=== PATIENT | male | born 1980 ===

== ENCOUNTER 2021-03-09 09:58 | Emergency (ER) | payer OTHER, SELFPAY ==
--- NOTE | ~2021-03-09 | XR_ITS ---
EXAMINATION: XR HAND, LEFT CLINICAL INFORMATION: Nail gun injury COMPARISON: None TECHNIQUE: PA, lateral, and oblique views of the left hand. FINDINGS: Bone alignment is normal. No fracture or dislocation is seen. Joint spaces are normal. Soft tissues are normal. XR/XR hand LT 2V IMPRESSION: Normal left hand.
[2021-03-09 10:12] VITALS: BP 133/82; PULSE 70; RESP 16; TEMP 36.4; O2SAT 98; BMI 30.5
[2021-03-09] MEDS: Diphth,Pertus(ACell),Tet Adult 0.5 ML SYRINGE IM (10:45)
--- NOTE | 2021-03-09 10:58 | ED.UPPEXIN ---
HPI - Extremity Injury (Upper) General Chief Complaint: Extremity Injury, Upper Stated Complaint: lt hand injury nail gun - work related Time Seen by Provider: 03/09/21 10:12 Source: patient Mode of arrival: ambulatory Limitations: no limitations History of Present Illness HPI narrative: 40-year-old male presenting to the ED with complaints of nail gun work related injury to left hand at the 4th digit when he was building a Pallet with the nail gun. He reports his hand was behind the wooden piece and he believes the wooden piece was rotten and the nail went directly into his 4th digit after it went through the wooden piece when attempted to build the wooden Pallet. He reports he was able to remove the digit away from the nail/piece of wood and he does not believe he has any foreign bodies. He reports that this happened prior to arrival. He is not up-to-date on his tetanus. Denies any other symptoms complaints or concerns at this time. MD complaint: injury to: left, hand and finger (Fourth digit) Onset (ago): minute(s) (Prior to arrival) Other injuries: none Place: work Severity: mild Exacerbating factors: other (Palpation) Context: other (Puncture wound with nail/nailgun) Associated symptoms: denies other symptoms Treatments prior to arrival: bandage Related Data Previous Rx's Medication Instructions Recorded levetiracetam 1,000 mg tablet 1,000 mg PO BID 30 Days #60 tab 12/09/20 lacosamide 100 mg tablet 100 mg PO BID 30 Days #60 tab 01/25/21 acetaminophen [Tylenol Extra 1,000 mg PO QID PRN #14 tab 03/09/21 Strength] ibuprofen 800 mg PO Q8H PRN #14 tab 03/09/21 Allergies Allergy/AdvReac Type Severity Reaction Status Date / Time No Known Allergies Allergy Unverified 07/15/20 18:36 [No Known Allergies*] Review of Systems Review of Systems: Constitutional : No Fever, No Chills, Cardiovascular : No Chest Pain, No SOB Respiratory : No Dyspnea Gastrointestinal : No abdominal pain Musculoskeletal : No Joint Swelling Skin : positive skin laceration, No Foreign bodies, No rash, No surrounding erythema Neuro : No Weakness, No Numbness/tingling Psych : No SI/HI/thoughts of self injury Yes all other systems are reviewed and are negative PMFSH Past Medical History Attestation statement: The following information was validated with the patient. Medical History Seizures Sleep apnea Social History Social History Smoking Status: Current every day smoker Use of substances other than those prescribed or required for medical reasons: No Advance Directives: No Advance Directives Information Provided: No Physical Exam Vital Signs: Vital Signs: Last Vital Signs Temp 97.6 F 03/09/21 10:12 Pulse 70 03/09/21 10:12 Resp 16 03/09/21 10:12 BP 133/82 03/09/21 10:12 Pulse Ox 98 03/09/21 10:12 Body Mass Index 30.5 vital signs have been reviewed as normal and appeared to be correct. Blood pressure normal. Heart rate normal. Respiration rate normal. Temperature normal. Oxygen saturation normal. Appearance: Alert. Oriented X3. No acute distress. Head: Normal external exam. Normocephalic. Atraumatic. Eyes: PERRLA. EOMI. Conjunctiva and sclera normal. Eyelids normal. ENT: Pharynx normal. Uvula midline. Moist mucous membranes. Neck: Normal inspection. Neck supple. FROM. No adenopathy. Thyroid Normal. No meningeal signs. No neck mass noted. CVS: Normal heart rate and rhythm. Pulses normal throughout. Respiratory: No respiratory distress. Painless inspiration. Back: Full range of motion noted. Skin: Skin warm and dry. Normal skin color. Normal skin turgor. No rashes/lesions/lacerations noted. Extremities: To 4th digit at the palmar aspect distal aspect patient has puncture wound noted no active bleeding/foreign body/surrounding erythema/fluctuance/induration or signs of infection noted at this time. Patient has full range of motion of the digit no laxity is noted. Otherwise all other Extremities exhibit normal range of motion and nontender. Neuro: Oriented X 3. No motor deficit. No sensory deficit. Reflexes normal. Course Course Course Narrative: 40-year-old male status post work related injury with nail gun. X-ray obtained negative for any acute processes. No sutures indicated at this time. The wound was cleaned. Patient's tetanus was updated at this time. Will DC home with instructions return if any new or worsening symptoms and to follow up with primary care provider. Patient understands agrees this plan. MDM - Extremity Injury (Upper) Medical Records Attestation: I reviewed the patient's medical records. Imaging Data X-ray left hand: Attestation: I personally reviewed and interpreted this imaging study as follows: Radiologist's impression: FINDINGS: Bone alignment is normal. No fracture or dislocation is seen. Joint spaces are normal. Soft tissues are normal. XR/XR hand LT 2V IMPRESSION: Normal left hand. Discharge Plan Discharge Clinical Impression: Puncture wound of finger of left hand, Encounter for assessment of work-related causation of injury Patient Disposition: Home, Self-Care Instructions: Puncture Wound (ED), Return to Work Instructions (ED) Prescriptions: New acetaminophen [Tylenol Extra Strength] 500 mg tablet 1,000 mg PO QID PRN (Reason: fever or pain) Qty: 14 RF: 0 ibuprofen 800 mg tablet 800 mg PO Q8H PRN (Reason: pain) Qty: 14 RF: 0 No Action levetiracetam [Keppra] 1,000 mg tablet 1,000 mg PO BID 30 Days Qty: 60 RF: 0 Vimpat 100 mg tablet 100 mg PO BID 30 Days Qty: 60 RF: 0 Referrals: [facility] [Provider Group] - 03/09/21 Stand Alone Forms: Work/School Release Print Language: Indonesian
== END 2021-03-09 11:34 | disposition home or self-care (01) ==
PROVIDERS: Emergency Provider Emergency Medicine Emergency Medical Services; PCP Internal Medicine
DX: S61.432A Puncture wound without foreign body of left hand, initial encounter (principal); M79.645 Pain in left finger(s); W45.8XXA Other foreign body or object entering through skin, initial encounter; Y93.9 Activity, unspecified; Y92.9 Unspecified place or not applicable; Y99.9 Unspecified external cause status
CPT/HCPCS: 73120; 90471; 90715; 99283; 99284

== ENCOUNTER 2022-04-18 07:24 | Emergency (ER) | payer OTHER, SELFPAY ==
--- NOTE | ~2022-04-18 | XR_ITS ---
EXAMINATION: XR HAND, RIGHT CLINICAL INFORMATION: Right hand pain after fall COMPARISON: None TECHNIQUE: PA, lateral, and oblique views of the right hand. FINDINGS: Bones, joints and soft tissues of the hand and wrist have a normal appearance. No evidence of acute fracture or subluxation. No radiopaque foreign body. XR/XR hand RT min 3V IMPRESSION: Normal right hand.
--- NOTE | ~2022-04-18 | XR_ITS ---
EXAMINATION: XR SHOULDER, LEFT CLINICAL INFORMATION: Left anterior shoulder pain after fall. COMPARISON: None TECHNIQUE: AP external rotation, Grashey, scapular Y, and axillary views of the left shoulder. FINDINGS: The bones and soft tissues are normal. No fracture. Glenohumeral and acromioclavicular alignment is anatomic with normal joint space. No abnormal soft tissue calcifications. XR/XR shoulder LT min 2V IMPRESSION: Normal left shoulder.
[2022-04-18 07:28] VITALS: BP 131/75; PULSE 90; RESP 18; TEMP 36.6; O2SAT 98; BMI 29.0
--- NOTE | 2022-04-18 08:23 | ED_ITS ---
HPI - Extremity Injury (Upper) General Chief Complaint: Wound/Laceration Stated Complaint: fall r hand inj Time Seen by Provider: 04/18/22 07:30 Source: patient Mode of arrival: ambulatory Limitations: no limitations History of Present Illness HPI narrative: R hand and L shoulder injury post fall MD complaint: injury to: right and hand Onset (ago): day(s) (1) Other injuries: none Handedness: right Place: outdoors Severity: mild Relieving factors: immobilization Exacerbating factors: movement of extremity Context: direct blow Associated symptoms: other (abrasions to R hand) Related Data Previous Rx's Medication Instructions Recorded lacosamide 100 mg tablet (Vimpat) 100 mg PO BID 30 days #60 tabs 11/14/21 levetiracetam 1,000 mg tablet 1,000 mg PO BID 30 days #60 tabs 01/09/22 (Keppra) Allergies Allergy/AdvReac Type Severity Reaction Status Date / Time phenytoin [From Dilantin] AdvReac Intermediate inadequate Verified 11/24/21 16:02 response Review of Systems Review of Systems: Constitutional : No Fever, No Chills ENT/Mouth : No Ear Pain, No Hoarseness, No sore throat Eyes: No Eye Pain, No Swelling, No Redness, No Foreign Body Cardiovascular : No Chest Pain, No SOB Respiratory : No Cough, No Dyspnea Gastrointestinal : No Nausea, No Vomiting, No Diarrhea, No abdominal Pain Genitourinary : No Dysuria, No Hematuria Musculoskeletal : positive joint pain, No Myalgias, No Joint Swelling Skin : No Skin lacerations, No rash, pos abrasions Neuro : No Weakness, No Numbness, No Loss of Consciousness, No Dizziness, No Headache PMFSH Past Medical History Attestation statement: The following information was validated with the patient. Medical History Sleep apnea Surgical History History of major surgery Family History Family History (Updated 11/24/21 @ 15:53 by NATALIA Santa) Father Alzheimer's dementia Brother Brain malignant neoplasm Mother CVA (cerebral vascular accident) Social History Social History Housing: Apartment Alcohol intake: current Alcohol intake frequency: holidays/special occasions only Alcohol type: beer Patient Tobacco Use Status: Current everyday Tobacco user Cigarettes Per Day: 5 e-Cigarette/Vaping Use: Never Used Second Hand Smoke Exposure: No Advance Directives: No Advance Directives Information Provided: No service: No Current occupational status: unemployed Physical Exam Vital Signs: Vital Signs: Last Vital Signs Temp 98 F 04/18/22 07:28 Pulse 90 04/18/22 07:28 Resp 18 04/18/22 07:28 BP 131/75 04/18/22 07:28 Pulse Ox 98 04/18/22 07:28 O2 Del Method 04/18/22 07:28 BMI result Body Mass Index 29.0 Appearance: Alert. Oriented X3. No acute distress. Eyes: Pupils equal, round and reactive to light. ENT: Pharynx normal. Neck: Normal inspection. Neck supple. CVS: Normal heart rate and rhythm. Pulses normal. Respiratory: No respiratory distress. Breath sounds normal. Abdomen: Soft and nontender. Skin: Skin warm and dry. Normal skin color. Normal skin turgor. Extremities: No lower extremity edema. L shoulder mild ttp over AC joint, R hand mild superficial abrasions over MCPs distal NV intact ttp along MCP joints but no swelling noted and can move fingers Neuro: Oriented X 3. No motor deficit. No sensory deficit. MDM - Extremity Injury (Upper) MDM Narrative Medical decision making narrative: 41 yo male with no sig PMH here with mechanical fall yesterday striking R hand on ground (adamantly denies fight bite) and L shoulder pain - xrays ordered, tet anus was 1 year ago, R hand abrasions were cleansed. Dispo per results and findings. He is NV intact Discharge Plan Discharge Clinical Impression: Abrasion, Hand sprain, Shoulder sprain Patient Disposition: Home, Self-Care Instructions: Sprain (ED), Abrasion (ED) Additional Instructions: return to ED for any worsening symptoms or concerns keep wounds clean and dry / covered, apply bacitracin twice a day xray of hand and shoulder no broken bones Prescriptions: No Action Vimpat 100 mg tablet 100 mg PO BID 30 Days Qty: 60 0RF levetiracetam [Keppra] 1,000 mg tablet 1,000 mg PO BID 30 Days Qty: 60 3RF Stand Alone Forms: Work/School Release
== END 2022-04-18 10:02 | disposition home or self-care (01) ==
PROVIDERS: Emergency Provider Emergency Medicine; PCP Internal Medicine
DX: S61.411A Laceration without foreign body of right hand, initial encounter (principal); S41.012A Laceration without foreign body of left shoulder, initial encounter; S41.011A Laceration without foreign body of right shoulder, initial encounter; S40.212A Abrasion of left shoulder, initial encounter; F17.210 Nicotine dependence, cigarettes, uncomplicated; W01.0XXA Fall on same level from slipping, tripping and stumbling without subsequent striking against object, initial encounter; Y93.9 Activity, unspecified; Y92.9 Unspecified place or not applicable; Y99.9 Unspecified external cause status; Z71.6 Tobacco abuse counseling; Z79.899 Other long term (current) drug therapy
CPT/HCPCS: 73030; 73130; 96372; 99283

== ENCOUNTER 2022-05-15 12:54 | Emergency (ER) | payer OTHER, SELFPAY ==
[2022-05-15 12:58] VITALS: BP 130/85; PULSE 63; RESP 18; TEMP 36.7; O2SAT 99; BMI 28.1
== END 2022-05-15 16:25 | disposition left against medical advice (07) ==
LOC: HO.ED 15:39
PROVIDERS: Emergency Provider Emergency Medicine; PCP Internal Medicine
DX: R56.9 Unspecified convulsions (principal)
CPT/HCPCS: 99281

== ENCOUNTER 2022-05-17 03:58 | Emergency (ER) | payer OTHER, SELFPAY ==
[2022-05-17 04:12] VITALS: BP 140/70; PULSE 102
[2022-05-17 04:16] VITALS: BP 115/70; PULSE 88; RESP 16; TEMP 36.7; O2SAT 95
[2022-05-17 04:23] VITALS: BP 126/89; PULSE 89; PULSE 91; RESP 16; TEMP 36.6; TEMP 37.2; O2SAT 98; O2SAT 99; BMI 25.1
--- NOTE | 2022-05-17 04:47 | ED.SEIZURE ---
HPI - Seizure General Chief Complaint: Seizure Stated Complaint: seizure Time Seen by Provider: 05/17/22 04:39 Source: patient and EMS Mode of arrival: EMS Limitations: no limitations History of Present Illness HPI Narrative: Patient comes to the emergency room after patient had seizure-like activity. This was witnessed by patient's cousin who called 911. Patient does have history of seizures, usually takes Keppra 500 mg b.i.d. and Vimpat 100 mg b.i.d.. Patient's Toprol he has been only taking Keppra, ran out of Vimpat over 1 month ago. Patient states that he bit his tongue. Patient denies any headache, chest pain or shortness of breath, no abdominal pain, no URI or UTI symptoms. Related Data Previous Rx's Medication Instructions Recorded lacosamide 100 mg tablet (Vimpat) 100 mg PO BID 30 days #60 tabs 11/14/21 levetiracetam 1,000 mg tablet 1,000 mg PO BID 30 days #60 tabs 05/03/22 (Keppra) lacosamide 100 mg tablet (Vimpat) 100 mg PO BID #60 tabs 05/17/22 Allergies Allergy/AdvReac Type Severity Reaction Status Date / Time phenytoin [From Dilantin] AdvReac Intermediate inadequate Verified 11/24/21 16:02 response Review of Systems Review of Systems: Constitutional : No Weight loss, No Fever, No Chills, No Night Sweats, No Fatigue, No Malaise ENT/Mouth : No Hearing loss, No Ear Pain, No Nasal Congestion, No Sinus Pain, No Hoarseness, No sore throat, No Rhinorrhea, No Swallowing Difficulty, tongue pain/bite Eyes: No Eye Pain, No Swelling, No Redness, No Foreign Body, No Discharge, No Vision Changes Cardiovascular : No Chest Pain, No SOB, No Dyspnea on Exertion, No Orthopnea, No Edema, No Palpitations Respiratory : No Cough, No Sputum, No Wheezing, No Smoke Exposure, No Dyspnea Gastrointestinal : No Nausea, No Vomiting, No Diarrhea, No Constipation, No abdominal Pain, No Hematochezia, No Melena Genitourinary : no irregular bleeding, No Dysuria, No Urinary Frequency, No Hematuria, No Urinary Incontinence, No Urgency, No Flank Pain, No Urinary Flow Changes, No Hesitancy Musculoskeletal : No joint pain, No Myalgias, No Joint Swelling Skin : No Skin Lesions, No rash Neuro : No Weakness, No Numbness, No Paresthesias, No Loss of Consciousness, No Dizziness, No Headache, complaining of a tonic clonic seizure Psych : No Anxiety/Panic, No Depression, No SI/HI/AH/VH, No Social Issues, Heme/Lymph: No Bruising, No Bleeding,No Lymphadenopathy Endocrine : No Polyuria, No Polydipsia, No Temperature Intolerance [facility] Past Medical History Medical History Moderate major depression, single episode Obesity (BMI 30-39.9) RADHA (obstructive sleep apnea) Overweight (BMI 25.0-29.9) Seizures Sleep apnea Surgical History History of major surgery Family History Family History (Updated 11/24/21 @ 15:53 by NATALIA Santa) Father Alzheimer's dementia Brother Brain malignant neoplasm Mother CVA (cerebral vascular accident) Social History Social History Housing: Apartment Alcohol intake: current Alcohol intake frequency: holidays/special occasions only Alcohol type: beer Patient Tobacco Use Status: Current everyday Tobacco user Cigarettes Per Day: 5 e-Cigarette/Vaping Use: Never Used Second Hand Smoke Exposure: No Advance Directives: No service: No Current occupational status: unemployed Physical Exam Vital Signs: Vital Signs: Last Vital Signs Temp 97.8 F 05/17/22 04:23 Pulse 89 05/17/22 04:23 Resp 16 05/17/22 04:23 BP 126/89 05/17/22 04:23 Pulse Ox 98 05/17/22 04:23 O2 Del Method 05/17/22 04:23 BMI result Body Mass Index 25.1 Const: Other: Appearance: Alert. Oriented X3. No acute distress. Eyes: Pupils equal, round and reactive to light. ENT: Pharynx normal. I do not see any bite chapa or bleeding in the tongue Neck: Normal inspection. Neck supple. No lymph nodes noted. No crepitus CVS: Normal heart rate and rhythm. Pulses normal. Normal S1 and S2 Respiratory: No respiratory distress. Breath sounds normal. No Wheezing. No rales Abdomen: Soft and nontender. No rigidity. No distention. Skin: Skin warm and dry. Normal skin color. Normal skin turgor. Extremities: No lower extremity edema. No Lacerations. No Rash Neuro: Oriented X 3. No motor deficit. No sensory deficit. Moving all extremities. No slurred speech. CN 2 through 12 grossly intact Psych: calm, cooperative, normal affect Course Course Course Narrative: Patient states that he does not remember if he took 1 or 2 doses of Keppra yesterday. Patient is being given IV Keppra at this time. All of patient's labs are pending. I discussed the patient with Dr. Chavez. I discussed the patient's situation that he cannot afford Vimpat. I discussed with Dr. Chavez if there is another medication that can replace be impaired. At this time, Dr. Chavez declined to make any further recommendations, other than have the patient follow-up with his own neurologist MDM - Seizure Lab Data Result diagrams: 05/17/22 04:42 05/17/22 04:42 Labs: Lab Results 05/17/22 05/17/22 05/17/22 Range/Units 04:42 04:42 04:42 WBC 15.7 H (4.8-10.8) X10*3/uL RBC 4.61 (4.60-5.80) X10*6/uL Hgb 14.0 (14.0-18.0) g/dl Hct 41.0 L (42.0-52.0) % MCV 88.9 (80.0-98.0) fL MCH 30.4 (27.0-33.0) pg MCHC 34.1 (31.0-36.0) g/dl RDW 12.9 (11.0-16.0) % Plt Count 337 (160-400) X10*3/uL MPV 10.3 (9.4-12.4) fL Immature Gran % (Auto) 0.4 (0.0-0.4) % Neut % (Auto) 78.0 H (45-73) % Lymph % (Auto) 14.8 L (20-40) % [place] % (Auto) 5.4 (2-11) % Eos % (Auto) 1.1 (0-4) % Baso % (Auto) 0.3 (0-2) % Lymph # (Auto) 2.3 (1.2-4.9) X10*3/uL [place] # (Auto) 0.9 (0.1-1.2) X10*3/uL Eos # (Auto) 0.2 (0.0-0.4) X10*3/uL Baso # (Auto) 0.0 (0.0-0.2) X10*3/uL Abs Immat Gran (auto) 0.07 H (0.00-0.03) X10*3/uL Absolute Neuts (auto) 12.2 H (2.0-8.3) x10*3/uL Absolute Nucleated RBC 0.000 (0.0-0.012) X10*3/uL Nucleated RBC % (auto) 0.0 (0.0-0.2) /100WBC Sodium 135 (135-145) mmol/L Potassium 3.9 (3.3-5.1) mmol/L Chloride 104 (96-108) mmol/L Carbon Dioxide 24 (22-29) mmol/L Anion Gap 11 L (12-20) BUN 13 (9-16) mg/dL Creatinine 0.91 (0.5-1.4) mg/dL Estim Creat Clear Calc 109.1 Estimated GFR > 60 Random Glucose 126 H (60-115) mg/dL Lactic Acid 1.7 (0.5-2.0) mmol/L Calcium 8.8 (8.4-10.2) mg/dL Total Bilirubin 0.4 (0.0-1.0) mg/dL AST 27 (5-37) U/L ALT 23 (0-40) U/L Alkaline Phosphatase 78 (39-117) U/L Total Protein 6.3 L (6.5-8.0) g/dL Albumin 4.0 (3.5-5.0) g/dL Ethyl Alcohol < 10 mg/dL Discharge Plan Discharge Clinical Impression: Seizures Patient Disposition: Home, Self-Care Instructions: Generalized Tonic Clonic Seizures (ED) Additional Instructions: Please follow-up with your primary care physician tomorrow. If you have any worsening or new symptoms, please return to the emergency room or call 911 Prescriptions: New lacosamide [Vimpat] 100 mg tablet 100 mg PO BID Qty: 60 0RF No Action Vimpat 100 mg tablet 100 mg PO BID 30 Days Qty: 60 0RF levetiracetam [Keppra] 1,000 mg tablet 1,000 mg PO BID 30 Days Qty: 60 3RF
[2022-05-17 04:48] LABS: MANUAL DIFF FLAG NO
[2022-05-17 04:49] LABS: Basophils Percent Auto 0.3 % (0-2); Eosinophils Absolute Auto 0.2 X10*3/uL (0.0-0.4); Eosinophils Percent Auto 1.1 % (0-4); Imm Gran Abs Auto 0.07 X10*3/uL (0.00-0.03); Imm Gran Pct Auto 0.4 % (0.0-0.4); Lymphocytes Absolute Auto 2.3 X10*3/uL (1.2-4.9); Lymphocytes Percent Auto 14.8 % (20-40); Mean Corpuscular HGB Conc 34.1 g/dl (31.0-36.0); Mean Corpuscular Hemoglobin 30.4 pg (27.0-33.0); Mean Corpuscular Volume 88.9 fL (80.0-98.0); Mean Platelet Volume 10.3 fL (9.4-12.4); Monocytes Absolute Auto 0.9 X10*3/uL (0.1-1.2); Monocytes Percent Auto 5.4 % (2-11); Neutrophils Absolute Auto 12.2 x10*3/uL (2.0-8.3); Platelet Count 337 X10*3/uL (160-400); Red Blood Count 4.61 X10*6/uL (4.60-5.80); Red Cell Distribution Width 12.9 % (11.0-16.0); White Blood Count 15.7 X10*3/uL (4.8-10.8)
[2022-05-17] MEDS: levETIRAcetam in NaCl (iso-os) 1,000 MG/100 ML PIGGYBACK 400 MG IV (04:54)
[2022-05-17 05:02] LABS: Lactic Acid 1.7 mmol/L (0.5-2.0)
[2022-05-17 05:13] LABS: Alanine Aminotransferase 23 U/L (0-40); Alkaline Phosphatase 78 U/L (39-117); Anion Gap 11 (12-20); Aspartate Amino Transferase 27 U/L (5-37); Bilirubin Total 0.4 mg/dL (0.0-1.0); Blood Urea Nitrogen 13 mg/dL (9-16); Calcium 8.8 mg/dL (8.4-10.2); Carbon Dioxide 24 mmol/L (22-29); Chloride 104 mmol/L (96-108); Creatinine Clr Calc Pharmacy 109.1; Estimated Glomerular Filt Rate > 60; Ethanol < 10 mg/dL; Glucose Random 126 mg/dL (60-115); Potassium 3.9 mmol/L (3.3-5.1); Sodium 135 mmol/L (135-145); Total Protein 6.3 g/dL (6.5-8.0)
[2022-05-23 01:07] LABS: Levetiracetam Keppra <2.0 mcg/mL (6.0-46.0)
== END 2022-05-17 08:10 | disposition home or self-care (01) ==
PROVIDERS: Emergency Provider Emergency Medicine; PCP Internal Medicine
DX: R56.9 Unspecified convulsions (principal); F17.200 Nicotine dependence, unspecified, uncomplicated; Z71.6 Tobacco abuse counseling; Z79.899 Other long term (current) drug therapy
CPT/HCPCS: 36415; 80053; 80177; 82077; 83605; 85025; 96374; 99284; J1953

== ENCOUNTER 2022-05-21 22:13 | Emergency (ER) | payer OTHER, SELFPAY ==
[2022-05-21 22:21] VITALS: BP 123/76; PULSE 85; RESP 16; TEMP 36.9; O2SAT 97; BMI 28.1
[2022-05-21 23:44] VITALS: BP 126/77; PULSE 83; RESP 16; TEMP 37.1; O2SAT 98
--- NOTE | 2022-05-21 23:47 | ED_ITS ---
HPI - Seizure General Chief Complaint: Seizure Stated Complaint: ongoing seizures, dr Order Time Seen by Provider: 05/21/22 23:47 Source: patient and family Mode of arrival: ambulatory Limitations: no limitations History of Present Illness HPI Narrative: Patient history of seizures disorder on Vimpat and Keppra been taking Vimpat 100 mg twice daily and Keppra 1000 mg twice daily patient had labs of few days and Keppra but got the medication filled was seen here 2 days ago and was given IV Keppra today patient had 2 seizures with prolonged postictal phase at this time patient alert oriented x3 no active seizure activities no injuries Related Data Previous Rx's Medication Instructions Recorded lacosamide 100 mg tablet (Vimpat) 100 mg PO BID 30 days #60 tabs 11/14/21 levetiracetam 1,000 mg tablet 1,000 mg PO BID 30 days #60 tabs 05/03/22 (Keppra) lacosamide 100 mg tablet (Vimpat) 100 mg PO BID #60 tabs 05/17/22 diazepam 5 mg tablet (Valium) 5 mg PO BID PRN seizure activity 05/22/22 #10 tabs Allergies Allergy/AdvReac Type Severity Reaction Status Date / Time phenytoin [From Dilantin] AdvReac Intermediate inadequate Verified 05/21/22 22:19 response Review of Systems Review of Systems: Yes all other systems are reviewed and are negative PMF Past Medical History Medical History Moderate major depression, single episode Obesity (BMI 30-39.9) RADHA (obstructive sleep apnea) Overweight (BMI 25.0-29.9) Seizures Sleep apnea Surgical History History of major surgery Family History Family History Father Alzheimer's dementia Brother Brain malignant neoplasm Mother CVA (cerebral vascular accident) Social History Social History Housing: Apartment Alcohol intake: current Alcohol intake frequency: holidays/special occasions only Alcohol type: beer Patient Tobacco Use Status: Current everyday Tobacco user Cigarettes Per Day: 5 e-Cigarette/Vaping Use: Never Used Second Hand Smoke Exposure: No Advance Directives: No Advance Directives Information Provided: Yes service: No Current occupational status: unemployed Physical Exam Vital Signs: Vital Signs: Last Vital Signs Temp 98.7 F 05/21/22 23:44 Pulse 83 05/21/22 23:44 Resp 16 05/21/22 23:44 BP 126/77 05/21/22 23:44 Pulse Ox 98 05/21/22 23:44 O2 Del Method 05/21/22 23:44 BMI result Body Mass Index 28.1 Appearance: Alert. Oriented X3. No acute distress. Eyes: PERRLA, No Nystagmus ENT: Pharynx normal. Oral Mucosa moist Neck: Normal inspection. Neck supple. CVS: Normal heart rate and rhythm. Pulses normal. Respiratory: No respiratory distress. Equal air entry bilateral, no whe ezing/rales/rhonchi Abdomen: Soft and nontender. Bowel sounds are present, no mass palpable, no CVA tenderness Skin: Skin warm and dry. Normal skin color. Normal skin turgor. Extremities: No lower extremity edema. No calf tenderness Neuro: Oriented X 3. No motor deficit. No sensory deficit.No cerebellar signs , cranial nerves II-XII intact MDM - Seizure MDM Narrative Medical decision making narrative: Patient denies seizure disorder had an few weeks of not taking the medications restarted 2 days ago still having seizure patient advised to continue same supposed to see a neurologist tomorrow. Meanwhile patient was given Valium 5 mg twice daily as needed for seizure Differential Diagnosis Differential diagnosis: Likely generalized seizure Discharge Plan Discharge Clinical Impression: Seizures Patient Disposition: Home, Self-Care Instructions: Recurrent Seizures in Adults (ED) Additional Instructions: Start taking Valium 5 mg twice daily as needed for seizure see your neurologist tomorrow for further evaluation and management as scheduled Prescriptions: New diazepam [Valium] 5 mg tablet 5 mg PO BID PRN (Reason: seizure activity) Qty: 10 0RF No Action Vimpat 100 mg tablet 100 mg PO BID 30 Days Qty: 60 0RF levetiracetam [Keppra] 1,000 mg tablet 1,000 mg PO BID 30 Days Qty: 60 3RF lacosamide [Vimpat] 100 mg tablet 100 mg PO BID Qty: 60 0RF Stand Alone Forms: Work/School Release Interventions: ED Discharge Assessment Last Done: 05/22/22 00:20 Discharge Date/Time: 05/22/22 00:20
[2022-05-22] MEDS: diazePAM 2 MG TABLET 5 MG PO (00:04)
== END 2022-05-22 00:20 | disposition home or self-care (01) ==
PROVIDERS: Emergency Provider Internal Medicine; PCP Internal Medicine
DX: R56.9 Unspecified convulsions (principal); Z79.899 Other long term (current) drug therapy; F17.210 Nicotine dependence, cigarettes, uncomplicated; Z71.6 Tobacco abuse counseling
CPT/HCPCS: 99283; 99284

== ENCOUNTER 2022-06-04 22:04 | Emergency (ER) | payer OTHER, SELFPAY ==
--- NOTE | 2022-06-04 22:05 | ECG_ITS ---
Test Reason : CHEST PAIN Blood Pressure : / mmHG Vent. Rate : 068 BPM Atrial Rate : 068 BPM P-R Int : 146 ms QRS Dur : 080 ms QT Int : 388 ms P-R-T Axes : 020 047 023 degrees QTc Int : 412 ms Normal sinus rhythm Normal ECG No previous ECGs available Referred By: Generic ED Physician Electronically Signed By:ABIGAIL JONES
[2022-06-04 22:07] VITALS: BP 115/57; PULSE 71; RESP 18; TEMP 37.2; O2SAT 98; BMI 28.1
[2022-06-04 22:33] LABS: MANUAL DIFF FLAG NO
[2022-06-04 22:40] LABS: Basophils Percent Auto 0.3 % (0-2); Eosinophils Absolute Auto 0.1 X10*3/uL (0.0-0.4); Hematocrit 41.5 % (42.0-52.0); Hemoglobin 14.1 g/dl (14.0-18.0); Imm Gran Abs Auto 0.04 X10*3/uL (0.00-0.03); Imm Gran Pct Auto 0.3 % (0.0-0.4); Lymphocytes Absolute Auto 2.3 X10*3/uL (1.2-4.9); Lymphocytes Percent Auto 17.9 % (20-40); Mean Corpuscular Hemoglobin 30.5 pg (27.0-33.0); Mean Corpuscular Volume 89.6 fL (80.0-98.0); Mean Platelet Volume 11.1 fL (9.4-12.4); Monocytes Absolute Auto 0.7 X10*3/uL (0.1-1.2); Monocytes Percent Auto 5.5 % (2-11); Neutrophils Absolute Auto 9.8 x10*3/uL (2.0-8.3); Platelet Count 299 X10*3/uL (160-400); Red Blood Count 4.63 X10*6/uL (4.60-5.80); Red Cell Distribution Width 13.2 % (11.0-16.0); White Blood Count 13.1 X10*3/uL (4.8-10.8)
[2022-06-04 22:59] LABS: Alanine Aminotransferase 14 U/L (0-40); Albumin Level 4.4 g/dL (3.5-5.0); Alkaline Phosphatase 100 U/L (39-117); Anion Gap 14 (12-20); Aspartate Amino Transferase 16 U/L (5-37); Bilirubin Total 0.4 mg/dL (0.0-1.0); Blood Urea Nitrogen 11 mg/dL (9-16); Calcium 9.3 mg/dL (8.4-10.2); Carbon Dioxide 28 mmol/L (22-29); Chloride 102 mmol/L (96-108); Creatinine Clr Calc Pharmacy 109.3; Estimated Glomerular Filt Rate > 60; Glucose Random 102 mg/dL (60-115); Sodium 140 mmol/L (135-145); Total Protein 6.9 g/dL (6.5-8.0)
[2022-06-04 23:03] LABS: Troponin-I High Sensitivity < 3.5 ng/L (<3.5-35.0)
== END 2022-06-04 23:45 | disposition left against medical advice (07) ==
PROVIDERS: Emergency Provider Emergency Medicine; PCP Internal Medicine
DX: R07.9 Chest pain, unspecified (principal); R56.9 Unspecified convulsions
CPT/HCPCS: 36415; 80053; 84484; 85025; 93005; 99283

== ENCOUNTER → 2022-10-26 15:17 | Outpatient (BNVA) | payer OTHER, SELFPAY | PROVIDERS: PCP Internal Medicine; Visit Provider Internal Medicine | DX: R56.9 Unspecified convulsions (principal); G47.33 Obstructive sleep apnea (adult) (pediatric); R40.0 Somnolence; R06.83 Snoring; E66.01 Morbid (severe) obesity due to excess calories; F17.210 Nicotine dependence, cigarettes, uncomplicated; Z68.28 Body mass index [BMI] 28.0-28.9, adult | CPT/HCPCS: 99202 ==

== ENCOUNTER 2022-11-02 17:15 | Outpatient (REF) | payer OTHER, SELFPAY | END 2022-11-02 17:16 | disposition home or self-care (01) | LOC: HO.HOSX 17:15 | PROVIDERS: Visit Provider Physician Assistant | DX: Z13.89 Encounter for screening for other disorder (principal) ==

== ENCOUNTER 2022-11-03 04:38 | Emergency (ER) | payer OTHER, SELFPAY ==
--- NOTE | ~2022-11-03 | CT_ITS ---
EXAMINATION: CT HEAD WITHOUT CONTRAST CLINICAL INFORMATION: Status post seizure, fall COMPARISON: MRI brain 04/24/2014 TECHNIQUE: Contiguous axial imaging was performed from the skull base to vertex without intravenous administration of contrast. This CT examination was performed using dose optimization techniques as appropriate, variously including the following: *Automated exposure control *Adjustment of mA and/or kV according to patient size (this includes techniques or standardized protocols for targeted exams where dose is matched to indication/reason for exam; i.e. extremities or head) *Use of iterative reconstruction technique DLP: 743 mGy-cm FINDINGS: There is no acute intra-axial, extra-axial bleed, masses or midline shift. There is no acute infarction in evolution. The blake to white matter difference is maintained. The lateral ventricles are symmetrical in size size and configuration without enlargement. There is no edema. The blake to white matter difference is maintained normal. Bone windows reveal no calvarial abnormality. Bilateral paranasal sinuses and mastoid air cells are well-aerated. CT/CT head/brain wo IV con IMPRESSION: No acute intracranial process seen.
[2022-11-03 04:39] VITALS: BP 138/97; PULSE 94; RESP 18; TEMP 36.9; O2SAT 98; BMI 28.0
--- NOTE | 2022-11-03 04:53 | ECG_ITS ---
Test Reason : SEIZURE Blood Pressure : / mmHG Vent. Rate : 081 BPM Atrial Rate : 081 BPM P-R Int : 170 ms QRS Dur : 078 ms QT Int : 350 ms P-R-T Axes : 058 037 029 degrees QTc Int : 406 ms Normal sinus rhythm Normal ECG When compared with ECG of 04-JUN-2022 22:25, No significant change was found Referred By: Generic ED Physician Electronically Signed By:ABIGAIL JONES
[2022-11-03 04:54] VITALS: BP 125/83; PULSE 84; RESP 22; TEMP 36.6; O2SAT 99
--- NOTE | 2022-11-03 05:03 | ED_ITS ---
HPI - Seizure General Chief Complaint: Seizure Stated Complaint: seizures, loss of memory, confusion, hit head Time Seen by Provider: 11/03/22 05:03 Source: patient Mode of arrival: ambulatory Limitations: no limitations History of Present Illness HPI Narrative: Patient has history of seizure disorder on levetiracetam and lacosamide, missed his medication for last 2 days came for 2 episodes of seizures is 1st seizure at 01:00 lasted for 3 -4 minutes with postictal combative behavior bit his tongue went to sleep and again had a 2nd seizure at 03:00 fell off the chair onto the ground bit his tongue again last seizure was in June 19. When patient arrived patient was sleepy complaining of headaches Seizure History: Yes Place: Home Related Data Previous Rx's Medication Instructions Recorded nicotine 21 mg/24 hr daily 1 patch transdermal DAILY 28 days 07/25/22 transdermal patch #28 ea levetiracetam 1,000 mg tablet 1,000 mg PO BID 30 days #60 tabs 08/26/22 (Keppra) lacosamide 100 mg tablet (Vimpat) 100 mg PO BID #60 tabs 10/16/22 Allergies Allergy/AdvReac Type Severity Reaction Status Date / Time phenytoin [From Dilantin] AdvReac Intermediate inadequate Verified 10/26/22 15:49 response Review of Systems Review of Systems: Yes all other systems are reviewed and are negative PMFSH Past Medical History Medical History Hospital discharge follow-up Moderate major depression, single episode Obesity (BMI 30-39.9) RADHA (obstructive sleep apnea) Overweight (BMI 25.0-29.9) Seizures Sleep apnea Smoker Somnolence, daytime Surgical History History of major surgery Family History Family History Father Alzheimer's dementia Brother Brain malignant neoplasm Mother CVA (cerebral vascular accident) Social History Social History Housing: Apartment Alcohol intake: current Alcohol intake frequency: does not drink Alcohol type: beer Patient Tobacco Use Status: Current everyday Tobacco user Cigarettes Per Day: 10 Smoked in Last 30 Days: Yes e-Cigarette/Vaping Use: Never Used Second Hand Smoke Exposure: No Use of substances other than those prescribed or required for medical reasons: No Advance Directives: No Advance Directives Information Provided: Yes service: No Current occupational status: unemployed Cognitive needs: No Hearing needs: No Vision needs: No Physical Exam Vital Signs: Vital Signs: Last Vital Signs Temp 98.2 F 11/03/22 06:00 Pulse 82 11/03/22 06:00 Resp 20 11/03/22 06:00 BP 126/86 11/03/22 06:00 Pulse Ox 96 11/03/22 06:00 O2 Del Method 11/03/22 06:00 BMI result Body Mass Index 28.0 Appearance: Alert. Oriented X3. No acute distress. Eyes: PERRLA, No Nystagmus ENT: Pharynx normal. Oral Mucosa moist tongue bite+ Neck: Normal inspection. Neck supple. CVS: Normal heart rate and rhythm. Pulses normal. Respiratory: No respiratory distress. Equal air entry bilateral, no wheezing/rales/rhonchi Abdomen: Soft and nontender. Bowel sounds are present, no mass palpable, no CVA tenderness Skin: Skin warm and dry. Normal skin color. Normal skin turgor. Extremities: No lower extremity edema. No calf tenderness Neuro: Oriented X 3. No motor deficit. No sensory deficit.No cerebellar signs , cranial nerves II-XII intact Medications Administered Discontinued Medications Generic Name Dose Route Start Last Admin Trade Name Freq PRN Reason Stop Dose Admin Lacosamide 100 mg 11/03/22 05:06 11/03/22 05:38 Lacosamide 100 Mg Tablet PO 11/03/22 05:07 100 mg ONCE ONE Administration Levetiracetam 1,000 mg 11/03/22 05:07 11/03/22 05:38 Levetiracetam 500 Mg/5 Ml Vial IV 11/03/22 05:08 1,000 mg ONCE ONE Administration Medical Decision Making Medical Decision Making [facility] Narrative: Patient with breakthrough seizure missed his epileptic medication CT scan of the head was negative patient was given IV Keppra and Vimpat advised to follow with PCP and not to miss his dose patient will be getting his medication from the pharmacy today and Lab Data [facility] Lab Attestation statement: I reviewed the patient's lab results. 11/03/22 05:20 11/03/22 05:20 Labs: Lab Results 11/03/22 11/03/22 11/03/22 Range/Units 05:05 05:20 05:20 WBC 16.8 H (4.8-10.8) X10*3/uL RBC 5.49 (4.60-5.80) X10*6/uL Hgb 16.6 (14.0-18.0) g/dl Hct 47.9 (42.0-52.0) % MCV 87.2 (80.0-98.0) fL MCH 30.2 (27.0-33.0) pg MCHC 34.7 (31.0-36.0) g/dl RDW 12.7 (11.0-16.0) % Plt Count 382 D (160-400) X10*3/uL MPV 9.9 (9.4-12.4) fL Immature Gran % (Auto) 0.4 (0.0-0.4) % Neut % (Auto) 82.2 H (45-73) % Lymph % (Auto) 11.7 L (20-40) % [place] % (Auto) 4.7 (2-11) % Eos % (Auto) 0.5 (0-4) % Baso % (Auto) 0.5 (0-2) % Lymph # (Auto) 2.0 (1.2-4.9) X10*3/uL [place] # (Auto) 0.8 (0.1-1.2) X10*3/uL Eos # (Auto) 0.1 (0.0-0.4) X10*3/uL Baso # (Auto) 0.1 (0.0-0.2) X10*3/uL Abs Immat Gran (auto) 0.07 H (0.00-0.03) X10*3/uL Absolute Neuts (auto) 13.8 H (2.0-8.3) x10*3/uL Absolute Nucleated RBC 0.020 H (0.0-0.012) X10*3/uL Nucleated RBC % (auto) 0.1 (0.0-0.2) /100WBC Sodium 138 (135-145) mmol/L Potassium 4.8 (3.3-5.1) mmol/L Chloride 104 (96-108) mmol/L Carbon Dioxide 23 (22-29) mmol/L Anion Gap 16 (12-20) BUN 11 (9-16) mg/dL Creatinine 0.96 (0.5-1.4) mg/dL Estim Creat Clear Calc 101.2 Estimated GFR > 60 POC Glucose 100 (60-115) mg/dL Random Glucose 93 (60-115) mg/dL Calcium 10.1 D (8.4-10.2) mg/dL Discharge Plan Discharge Clinical Impression: Seizures Patient Disposition: Home, Self-Care Instructions: Recurrent Seizures in Adults (ED) Additional Instructions: Do not miss your medications take them on regular basis Follow with PCP/neurologist Prescriptions: No Action nicotine 21 mg/24 hr patch 24 hour 1 patch transdermal DAILY 28 Days Qty: 28 0RF levetiracetam [Keppra] 1,000 mg tablet 1,000 mg PO BID 30 Days Qty: 60 3RF lacosamide [Vimpat] 100 mg tablet 100 mg PO BID Qty: 60 0RF Stand Alone Forms: Work/School Release
[2022-11-03 05:08] LABS: Glucose, Whole Blood 100 mg/dL (60-115)
[2022-11-03 05:25] LABS: Basophils Absolute Auto 0.1 X10*3/uL (0.0-0.2); Basophils Percent Auto 0.5 % (0-2); Eosinophils Absolute Auto 0.1 X10*3/uL (0.0-0.4); Eosinophils Percent Auto 0.5 % (0-4); Hematocrit 47.9 % (42.0-52.0); Hemoglobin 16.6 g/dl (14.0-18.0); Imm Gran Abs Auto 0.07 X10*3/uL (0.00-0.03); Imm Gran Pct Auto 0.4 % (0.0-0.4); Lymphocytes Percent Auto 11.7 % (20-40); MANUAL DIFF FLAG NO; Mean Corpuscular HGB Conc 34.7 g/dl (31.0-36.0); Mean Corpuscular Hemoglobin 30.2 pg (27.0-33.0); Mean Corpuscular Volume 87.2 fL (80.0-98.0); Mean Platelet Volume 9.9 fL (9.4-12.4); Monocytes Absolute Auto 0.8 X10*3/uL (0.1-1.2); Monocytes Percent Auto 4.7 % (2-11); NRBC Pct Auto 0.1 /100WBC (0.0-0.2); Neutrophils Absolute Auto 13.8 x10*3/uL (2.0-8.3); Neutrophils Percent Auto 82.2 % (45-73); Platelet Count 382 X10*3/uL (160-400); Red Blood Count 5.49 X10*6/uL (4.60-5.80); Red Cell Distribution Width 12.7 % (11.0-16.0); White Blood Count 16.8 X10*3/uL (4.8-10.8)
[2022-11-03] MEDS: Lacosamide 100 MG TABLET PO (05:38)
[2022-11-03] MEDS: levETIRAcetam 500 MG/5 ML VIAL 1000 MG IV (05:38)
[2022-11-03 05:47] LABS: Anion Gap 16 (12-20); Blood Urea Nitrogen 11 mg/dL (9-16); Calcium 10.1 mg/dL (8.4-10.2); Carbon Dioxide 23 mmol/L (22-29); Chloride 104 mmol/L (96-108); Creatinine Clr Calc Pharmacy 101.2; Estimated Glomerular Filt Rate > 60; Glucose Random 93 mg/dL (60-115); Potassium 4.8 mmol/L (3.3-5.1); Sodium 138 mmol/L (135-145)
[2022-11-03 06:00] VITALS: BP 126/86; PULSE 82; RESP 20; TEMP 36.8; O2SAT 96
[2022-11-03] MEDS: Ketorolac Tromethamine 30 MG/ML VIAL IVPUSH (07:06)
--- NOTE | 2022-11-03 07:07 | PC.NURSE ---
Pt medicated as ordered. IV removed. Pt tolerated well. Discharge instructions provided to pt. Pt verbalizes understanding.
== END 2022-11-03 07:12 | disposition home or self-care (01) ==
PROVIDERS: Emergency Provider Internal Medicine; PCP Internal Medicine
DX: R56.9 Unspecified convulsions (principal); F17.210 Nicotine dependence, cigarettes, uncomplicated; Z71.6 Tobacco abuse counseling; Z79.899 Other long term (current) drug therapy
CPT/HCPCS: 36415; 70450; 80048; 82947; 85025; 93005; 96374; 96375; 99284; 99285; J1885; J1953

== ENCOUNTER → 2022-11-23 09:42 | Outpatient (REF) | payer OTHER, SELFPAY | LOC: HO.SL 09:42 | PROVIDERS: PCP Internal Medicine; Visit Provider Internal Medicine | DX: G47.33 Obstructive sleep apnea (adult) (pediatric) (principal) | CPT/HCPCS: 95806 ==

== ENCOUNTER → 2023-02-08 10:35 | Outpatient (BNVA) | payer OTHER, SELFPAY | PROVIDERS: PCP Internal Medicine; Visit Provider Internal Medicine | DX: G47.33 Obstructive sleep apnea (adult) (pediatric) (principal); R40.0 Somnolence; F17.210 Nicotine dependence, cigarettes, uncomplicated | CPT/HCPCS: 99212 ==

== ENCOUNTER 2023-03-09 07:25 | Outpatient (REF) | payer OTHER, SELFPAY ==
--- NOTE | ~2023-03-09 | XR_ITS ---
EXAMINATION: XR KNEE, RIGHT XR KNEE AP STANDING CLINICAL INFORMATION: Pain. COMPARISON: Right femur radiographs dated 03/24/2008 TECHNIQUE: Lateral and axial views of the right knee were obtained. AP bilateral standing view of the knees was obtained. FINDINGS: Bones and soft tissues are normal. No fracture or joint effusion. Alignment is anatomic. No varus or valgus configuration is seen bilaterally. Joint spaces are well maintained. No abnormal soft tissue calcification. A surgical clip is seen within the proximal right calf medially. XR/XR knee RT 2V IMPRESSION: Normal right knee radiographs and AP view of the bilateral knees.
--- NOTE | ~2023-03-09 | XR_ITS ---
EXAMINATION: XR KNEE, RIGHT XR KNEE AP STANDING CLINICAL INFORMATION: Pain. COMPARISON: Right femur radiographs dated 03/24/2008 TECHNIQUE: Lateral and axial views of the right knee were obtained. AP bilateral standing view of the knees was obtained. FINDINGS: Bones and soft tissues are normal. No fracture or joint effusion. Alignment is anatomic. No varus or valgus configuration is seen bilaterally. Joint spaces are well maintained. No abnormal soft tissue calcification. A surgical clip is seen within the proximal right calf medially. XR/XR knee standing BI IMPRESSION: Normal right knee radiographs and AP view of the bilateral knees.
== END 2023-03-09 07:26 | disposition home or self-care (01) ==
LOC: HO.HOSX 07:25
PROVIDERS: Visit Provider Physician Assistant
DX: M22.41 Chondromalacia patellae, right knee (principal); M25.561 Pain in right knee; M25.562 Pain in left knee; R20.0 Anesthesia of skin; R20.2 Paresthesia of skin
CPT/HCPCS: 73560; 73565; 99202

== ENCOUNTER → 2023-04-19 10:43 | Outpatient (BNVA) | payer OTHER, SELFPAY | PROVIDERS: PCP Internal Medicine; Visit Provider Internal Medicine | DX: G47.33 Obstructive sleep apnea (adult) (pediatric) (principal); F17.210 Nicotine dependence, cigarettes, uncomplicated | CPT/HCPCS: 99212 ==

== ENCOUNTER 2023-08-08 10:38 | Outpatient (AMB) | payer OTHER, SELFPAY ==
[2023-08-08 10:45] VITALS: BP 110/70; PULSE 62; O2SAT 99; BMI 29.0
--- NOTE | 2023-08-08 10:45 | MHC.OFFVIS ---
Intake Vital Signs 08/08/23 10:45 Height 5 ft 7 in Weight 185 lb BMI 29.0 BP 110/70 Blood Pressure Location Lt brachial Position Sitting Pulse 62 Pulse Source Pulse Oximeter Pulse Oximetry (%) 99 Oxygen Delivery Method Room Air Intake Visit Reasons: natalio Intake Note: pt is here for follow up and is using his NATALIO, most nights using his machine. Sales Center Associate Required: No Allergies phenytoin [From Dilantin] Adverse Reaction (Intermediate, Verified 08/08/23 11:08) inadequate response Medication List - Last Reconciled 08/08/23 by Cameron Aguiar MD lacosamide (Vimpat) 100 mg PO BID levetiracetam (Keppra) 1,000 mg PO BID 30 days Do you need a note to return to daycare/school/sports/work: No HPI natalio HPI Details THIS 43 YEARS OLD GENTLEMAN, A CASE OF OBSTRUCTIVE SLEEP APNEA MAINLY DUE TO RETROGANTHIA OF THE LOWER JAW, IS HAPPY AND EXCITED BECAUSE HE IS USING CPAP EVERY NIGHT AND SLEEPS WELL. ONLY ONCE OR TWICE A MONTH HE MAY MISS PUTTING ON THE MASK. HE WAKES UP REFRESHED, AND FEELS GOOD. HE HAS HAD NO SEIZURE AT ALL SINCE HIS LAST VISIT. HE HAS NO COMPLAINT RELATED TO THE MASK OR CPAP MACHINE. [facility]LY [facility] Medical History Smoker Somnolence, daytime Hospital discharge follow-up Overweight (BMI 25.0-29.9) NATALIO (obstructive sleep apnea) Moderate major depression, single episode Obesity (BMI 30-39.9) Sleep apnea Seizures Surgical History History of major surgery Family History Father Alzheimer's dementia Brother Brain malignant neoplasm Mother CVA (cerebral vascular accident) Social History Housing: Apartment Alcohol intake: current Alcohol intake frequency: does not drink Alcohol type: beer Patient Tobacco Use Status: Current everyday Tobacco user Tobacco use type: Cigarette Cigarettes Per Day: 4 e-Cigarette/Vaping Use: Never Used Second Hand Smoke Exposure: No service: No Current occupational status: unemployed Cognitive needs: No Hearing needs: No Vision needs: No Review of Systems Const All systems reviewed & are unremarkable except as noted in HPI and below Eyes Reports no additional complaints ENT Reports no additional complaints Card Denies chest pain, Denies irregular heart rhythm and Denies leg edema Resp Reports no additional complaints GI Reports no additional complaints Reports no additional complaints Musc Reports no additional complaints Skin/Breast Reports system reviewed and no additional complaints, except as documented Neuro Reports other (Seizure disorder controlled) Psych Reports no additional complaints and Reports depression (Past history of major depression, not any more) Endo Reports no additional complaints Physical Exam Vital Signs: Last Vital Signs Pulse 62 08/08/23 10:45 BP 110/70 08/08/23 10:45 Pulse Ox 99 08/08/23 10:45 Oxygen Delivery Method Room Air 08/08/23 10:45 BMI result Body Mass Index 29.0 Const Other: Only slightly overweight, healthy looking General: comfortable, no acute distress, alert and awake Orientation/consciousness: patient oriented x3 HEENT Head: Yes normal to inspection General nose exam: No nasal polyps present and No nasal discharge present Face and sinus: Yes sinuses nontender Mouth: oropharynx abnormals (His tongue is placed back the oropharynx is narrow, Mallampati class 4.) Teeth and gingiva: other (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.) Throat: Yes posterior oropharynx normal and Yes other (RETROGANTHIA OF THE LOWER JAW) Eyes General: appearance normal, both eyes and all related structures Neck Neck: Yes normal visual inspection, Yes no lymphadenopathy, Yes trachea midline and Yes no JVD Thyroid: Thyroid normal Chest Chest palpation & inspection: normal inspection of the chest, normal palpation of entire chest wall and no tenderness Resp Effort & Inspection: normal respiratory effort and no cough Auscultation: clear to auscultation bilaterally, no crackles and no wheezes Cardio Palpation: normal PMI Rate: regular rate Rhythm: regular rhythm Heart sounds: no gallops and no murmurs Peripheral pulses: Peripheral pulses 2+ throughout GI Palpation (GI): Soft to palpation, nontender, No hepatosplenomegaly present and no masses Auscultation: normal bowel sounds Back/Spine/Pelvis Thoracic/Lumbar Spine: thoracic and lumbar spine normal to inspection Skin General skin exam: no rashes or lesions noted Neuro General: patient oriented x3 and no focal motor deficits Cranial nerves: Yes CN's II-XII intact bilaterally Extrem General: Yes normal to inspection, Yes no clubbing, cyanosis or edema and Yes no calf tenderness Psych Appearance: grossly normal and well kempt Speech and movement: Normal speech and movement present Results Reviewed Results Reviewed: COMPLIANCE REPORT FOR THE LAST 30 NIGHTS REVIEWED. HE HAS USED 29/30 NIGHTS., 97% AVERAGE USE PER NIGHT 5 HOURS 15 MINUTES. PRESSURE USED MAINLY 9-13 CM. THERE IS A MINIMAL AIR LEAK. RESIDUAL AHI 3.8 Assessment & Plan Assessment & Plan (1) NATALIO (obstructive sleep apnea): Comment: THIS GENTLEMAN DOES HAVE OBSTRUCTIVE SLEEP APNEA WHICH IS PRIMARILY DUE TO RETROGANTHIA OF THE LOWER JAW, IT IS MUCH IMPROVED WITH THE USE OF CPAP. HE IS USING WITH FULL COMPLIANCE AND SLEEPING MUCH BETTER. ADVISED TO CONTINUE USING IT REGULARLY, HE IS VERY HAPPY WITH THE USE OF CPAP, AND FEELS REASSURED. Code(s): G47.33 - Obstructive sleep apnea (adult) (pediatric) (2) Somnolence, daytime: Comment: Excessive daytime sleepiness, secondary to untreated NATALIO, and in sufficient sleep. ESS= 15 much improved. He remains alert. And energetic during the day Code(s): R40.0 - Somnolence (3) Smoker: Comment: Smokes but has cut down to 4 cigarettes a a day . AGAIN counseled To quit smoking completely . Code(s): F17.200 - Nicotine dependence, unspecified, uncomplicated Coding Level of Care Code Est Pt Level 3 (78747) Diagnoses NATALIO (obstructive sleep apnea) G47.33 Somnolence, daytime R40.0 Smoker F17.200
== END 2023-08-08 11:15 | disposition home or self-care (01) ==
PROVIDERS: PCP Internal Medicine; Visit Provider Internal Medicine
DX: G47.33 Obstructive sleep apnea (adult) (pediatric) (principal); R40.0 Somnolence; F17.200 Nicotine dependence, unspecified, uncomplicated
CPT/HCPCS: 99213

== ENCOUNTER → 2023-08-08 10:38 | Outpatient (BNVA) | payer OTHER, SELFPAY | PROVIDERS: PCP Internal Medicine; Visit Provider Internal Medicine | DX: G47.33 Obstructive sleep apnea (adult) (pediatric) (principal); R40.0 Somnolence; F17.210 Nicotine dependence, cigarettes, uncomplicated | CPT/HCPCS: 99212 ==

== ENCOUNTER 2023-10-04 13:24 | Emergency (ER) | payer OTHER, SELFPAY | END 2023-10-04 18:45 | disposition left against medical advice (07) | PROVIDERS: Emergency Provider Emergency Medicine; PCP Internal Medicine | DX: R56.9 Unspecified convulsions (principal); Z53.21 Procedure and treatment not carried out due to patient leaving prior to being seen by health care provider ==

== ENCOUNTER 2023-10-09 08:22 | Outpatient (AMB) | payer OTHER, SELFPAY ==
--- NOTE | 2023-10-09 08:26 | A.OFFPC_ITS ---
Vital Signs 10/09/23 08:29 Height 5 ft 7 in Weight 186 lb BMI 29.1 BP 120/82 Blood Pressure Location Lt brachial Position Sitting Intake Visit Reasons: PE Intake Note: Patient here for a physical exam, flu/rsv/covid test request due to patient not feeling well. Emergency Medicine Physician Assistant Required: No Accompanied by: cousin Allergies phenytoin [From Dilantin] Adverse Reaction (Intermediate, Verified 10/09/23 08:33) inadequate response Medication List - Last Reconciled 10/09/23 by Sylvia Becerril MD lacosamide (Vimpat) 100 mg PO BID levetiracetam (Keppra) 1,000 mg PO BID 30 days Tobacco use date assessed: 01/25/23 Dental Screening Dental Screen Date: 10/09/23 Did you have a dental visit in the last 12 months?: No Did you have a dental problem in the last 6 months where you did not have access to dental care?: No Was dental information given to patient?: Patient has dentist HPI HPI Comments History of Present Illness Details This is a 43-year-old male with seizures that comes accompanied by cousin Annika which is his market director for his physical exam. He had a seizure last week despite being compliant with medications. Complains of nasal congestion, shortness of breath and chest congestion that started about 3 days ago. Tested negative for COVID-19. Denies any sick contacts. Seizures are follow by Neurology at [facility]. Also has moderate major depression and declines any treatment. [facility]LY [facility] Medical History Smoker Somnolence, daytime Hospital discharge follow-up Overweight (BMI 25.0-29.9) RADHA (obstructive sleep apnea) Moderate major depression, single episode Obesity (BMI 30-39.9) Sleep apnea Seizures Surgical History History of major surgery Family History (Updated 10/09/23 @ 08:41 by Sylvia Becerril MD) Father Alzheimer's dementia Brother Brain malignant neoplasm Mother CVA (cerebral vascular accident) Brain aneurysm Social History (Updated 10/09/23 @ 08:40 by Sylvia Becerril MD) Housing: Apartment Alcohol intake: current Alcohol intake frequency: does not drink Alcohol type: beer Patient Tobacco Use Status: Current everyday Tobacco user Tobacco use type: Cigarette Cigarettes Per Day: 4 e-Cigarette/Vaping Use: Never Used Second Hand Smoke Exposure: No service: No Current occupational status: unemployed Cognitive needs: No Hearing needs: No Vision needs: No Questionnaire Thrive Questionnaire Date Thrive assessed: 01/25/23 TRACEY-7 AMB Questionnaire TRACEY-7 Date TRACEY - 7 assessed: 05/23/22 Source: Developed by Drs. Gregg Felix, Nela Rodriguez, Eliezer Nelson and colleagues, with an educational yevgeniy from [employer]. Review of Systems Const All systems reviewed & are unremarkable except as noted in HPI and below Eyes Reports no additional complaints, Denies change in vision and Denies other visual disturbances ENT Reports nasal congestion Card Denies chest pain at rest, Denies chest pain with activity, Denies edema, Denies irregular heart rhythm, Denies claudication, Reports dyspnea, Reports dyspnea on exertion, Denies orthopnea, Denies paroxysmal nocturnal dyspnea and Denies slow heart rate Resp Reports cough, Reports excessive phlegm production, Reports dyspnea and Reports dyspnea on exertion GI Denies abdominal pain, Denies change in bowel habits, Denies excessive flatus, Denies nausea and Denies vomiting Denies urinary hesitancy, Denies urinary incontinence and Denies urinary urgency Musc Denies abnormal gait, Denies atrophy, Denies deformity and Denies limited range of motion Skin/Breast Denies bleeding lesions, Denies changing lesions and Denies rash Neuro Denies abnormal gait and Denies lack of coordination Physical exam (Primary Care) Vital Signs: Last Vital Signs BP 120/82 10/09/23 08:29 BMI result Body Mass Index 29.1 Tobacco/Smoking Status: Tobacco use Status Tobacco use date assessed 01/25/23 10/09/23 08:29 Patient Tobacco Use Status Current everyday Tobacco 10/09/23 08:29 Tobacco use type Cigarette 10/09/23 08:29 e-Cigarette/Vaping Use Never Used 10/09/23 08:29 Thrive Assessment: Date of Thrive Assessment Date Thrive assessed 01/25/23 10/09/23 08:29 Const Orientation/consciousness: patient oriented x3 HENMT Head: Yes normal to inspection, Yes normocephalic and Yes atraumatic Ears: external ears normal Eyes General: appearance normal, both eyes and all related structures Eyelids: Yes eyelids normal Conjunctivae: conjunctivae normal Neck Neck: Yes normal visual inspection and Yes supple Resp Effort & Inspection: normal respiratory effort Auscultation: clear to auscultation bilaterally Cardio Jugular venous distension: no JVD Rate: regular rate Rhythm: regular rhythm Heart sounds: S1 normal heart sound present and S2 normal heart sound present GI Inspection: Yes normal to inspection Palpation (GI): Soft to palpation and nontender Auscultation: normal bowel sounds Skin General skin exam: no rashes or lesions noted Neuro General: patient oriented x3 and no focal motor deficits Extrem General: Yes full ROM Psych Appearance: grossly normal Office Procedures Flu Questionnaire Does the patient have a severe egg allergy?: No Does the patient have a fever or illness today?: Yes Immunizations flu vacc [id number] 6mos up(PF) 60 mcg(15 mcgx4)/0.5 mL IM syringe Performing Provider: Sylvia Becerril MD [facility] Documented (not given) by: NATALIA Santa on 10/09/23 08:33 Reason Not Given: Patient Refused Assessment and Plan Assessment & Plan (1) Physical exam: Code(s): Z00.00 - Encounter for general adult medical examination without abnormal findings Plan: Repeat in a year. (2) Moderate major depression, single episode: Code(s): F32.1 - Major depressive disorder, single episode, moderate Plan: Consider start treatment. (3) Seizures: Comment: Diagnosed at 17 years old by EEG in [place], [place] Remains controlled with medication , Keppra 1000 mg b.i.d. and lacosamide 100 mg b.i.d. Code(s): R56.9 - Unspecified convulsions Plan: Continue Vimpat and Keppra. Follow-up with Neurology. MRI of the brain ordered. Orders: Orders Lipid Panel Today Z00.00 - Encounter for general adult medical examination without abnormal findings Comprehensive [place]. Panel Fast Today Z00.00 - Encounter for general adult medical examination without abnormal findings Influenza [id number] Immunization Today Z23 - Encounter for immunization MR head/brain wo con Today R56.9 - Unspecified convulsions Complete Blood Count Auto Diff Today R56.9 - Unspecified convulsions Levetiracetam Keppra Today R56.9 - Unspecified convulsions SARS-CoV2/FLU/RSV Today R09.89 - Other specified symptoms and signs involving the circulatory and respiratory systems, R56.9 - Unspecified convulsions Thyroid Stimulating Hormone Today R41.3 - Other amnesia Vitamin B12 and Folate Today R41.3 - Other amnesia Coding Level of Care Code Est Pt Prev Care 40-64y(83608) Diagnoses Physical exam Z00.00 Moderate major depression, single episode F32.1 Seizures R56.9 Time Spent (min) 31
[2023-10-09 08:29] VITALS: BP 120/82; BMI 29.1
== END 2023-10-09 08:48 | disposition home or self-care (01) ==
PROVIDERS: Visit Provider Internal Medicine
DX: Z00.00 Encounter for general adult medical examination without abnormal findings (principal); F32.1 Major depressive disorder, single episode, moderate; R56.9 Unspecified convulsions; Z68.29 Body mass index [BMI] 29.0-29.9, adult
CPT/HCPCS: 99396

== ENCOUNTER 2023-12-10 11:16 | Outpatient (REF) | payer OTHER, SELFPAY ==
--- NOTE | ~2023-12-10 | XR_ITS ---
EXAMINATION: PRE-MRI SCREENING CLINICAL INFORMATION: Pre-MRI screening. COMPARISON: None available. TECHNIQUE: AP view of the pelvis as well as AP and frog-leg lateral views of the right hip and femur. FINDINGS: No radiopaque foreign body. Surgical clips within the right inguinal region as well as within the scrotum and medial soft tissues of the right knee. No acute fracture or dislocation. Degenerative spurring along the medial aspect of the right femoral diaphysis in the region of the adductor attachment, which could indicate prior injury. No concerning lytic or blastic osseous lesion. No joint space narrowing or marginal osteophytes. XR/XR pre mri screening IMPRESSION: 1. No radiopaque foreign body. 2. Degenerative spurring along the medial aspect of the right femoral diaphysis in the region of the adductor attachment, which could indicate prior injury.
== END 2023-12-10 11:17 | disposition home or self-care (01) ==
LOC: HO.XRAY 11:16
PROVIDERS: PCP Internal Medicine; Visit Provider Internal Medicine
DX: Z13.89 Encounter for screening for other disorder (principal)

== ENCOUNTER 2023-12-12 17:15 | Outpatient (REF) | payer OTHER, SELFPAY ==
--- NOTE | ~2023-12-12 | MR_ITS ---
EXAMINATION: MR BRAIN WITHOUT CONTRAST CLINICAL INFORMATION: Written mild C6, hepatic, weakness and numbness COMPARISON: MRI brain on 12/19/2018 TECHNIQUE: MRI of the brain was obtained using routine sequences without contrast. FINDINGS: Ventricles, sulci and cisterns are normal. Unchanged small T2 hyperintense focal lesion is seen in right parietal deep white matter around the ventricular trigone. Coronal T2-weighted images show no focal temporal lobe lesion with abnormal signal or asymmetry. No focal brainstem or cerebellar lesions with abnormal signal can be seen. Diffusion weighted images show no abnormal regional decrease in diffusion. Normal flow voids of major intracerebral blood vessels are seen in the visualized portion. The pituitary gland is normal. Optic chiasm is not displaced. Cerebellar tonsils position is normal. MR/MR head/brain wo con IMPRESSION: 1. Unchanged tiny right parietal deep white matter T2 hyperintense focus. 2. Unchanged, No acute cerebral infarction is seen. 3. No evidence of mesial temporal sclerosis. 4. No evidence of space occupying mass lesion could be found. 5. No evidence of intracranial hemorrhage.
== END 2023-12-12 17:16 | disposition home or self-care (01) ==
LOC: HO.MRI 17:15
PROVIDERS: PCP Internal Medicine; Visit Provider Internal Medicine
DX: R56.9 Unspecified convulsions (principal)
CPT/HCPCS: 70551

== ENCOUNTER 2024-02-04 15:20 | Outpatient (AMB) | payer OTHER, SELFPAY ==
[2024-02-04 15:23] VITALS: BP 112/90; PULSE 87; O2SAT 98; BMI 28.2
--- NOTE | 2024-02-04 15:23 | A.OFFVIS_ITS ---
Intake Vital Signs 02/04/24 15:23 Height 5 ft 7 in Weight 180 lb BMI 28.2 BP 112/90 H Blood Pressure Location Lt brachial Position Sitting Pulse 87 Pulse Source Pulse Oximeter Pulse Oximetry (%) 98 Oxygen Delivery Method Room Air Intake Visit Reasons: natalio Intake Note: pt is here for follow up and states he is doing well, doing well with cpap, some days he missed due to dental issues. 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 He is a regular user of the CPAP, last week he had some dental work so missed using it for 2 nights. He sleeps very good and benefits from the use of CPAP. He has no issues with the mask ( fullface) or with the CPAP device. Breathing hurley has been okay denies cough or wheezing attacks. [facility] Medical History Smoker Somnolence, daytime Hospital discharge follow-up Overweight (BMI 25.0-29.9) NATALIO (obstructive sleep apnea) Moderate major depression, single episode Obesity (BMI 30-39.9) Sleep apnea Seizures Surgical History History of major surgery Family History Father Alzheimer's dementia Brother Brain malignant neoplasm Mother CVA (cerebral vascular accident) Brain aneurysm Social History Housing: Apartment Alcohol intake: current Alcohol intake frequency: does not drink Alcohol type: beer Patient Tobacco Use Status: Current everyday Tobacco user Tobacco use type: Cigarette Cigarettes Per Day: 4 e-Cigarette/Vaping Use: Never Used Second Hand Smoke Exposure: No service: No Current occupational status: unemployed Cognitive needs: No Hearing needs: No Vision needs: No Review of Systems Const All systems reviewed & are unremarkable except as noted in HPI and below Eyes Reports no additional complaints ENT Reports no additional complaints Card Denies chest pain, Denies irregular heart rhythm and Denies leg edema Resp Reports no additional complaints GI Reports no additional complaints Reports no additional complaints Musc Reports no additional complaints Skin/Breast Reports system reviewed and no additional complaints, except as documented Neuro Reports other (Seizure disorder controlled) Psych Reports no additional complaints and Reports depression (Past history of major depression, not any more) Endo Reports no additional complaints Physical Exam Vital Signs: Last Vital Signs Pulse 87 02/04/24 15:23 BP 112/90 H 02/04/24 15:23 Pulse Ox 98 02/04/24 15:23 Oxygen Delivery Method Room Air 02/04/24 15:23 BMI result Body Mass Index 28.2 Const Other: Only slightly overweight, healthy looking General: comfortable, no acute distress, alert and awake Orientation/consciousness: patient oriented x3 HEENT Head: Yes normal to inspection General nose exam: No nasal polyps present and No nasal discharge present Face and sinus: Yes sinuses nontender Mouth: oropharynx abnormals (His tongue is placed back the oropharynx is narrow, Mallampati class 4.) Teeth and gingiva: other (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.) Throat: Yes posterior oropharynx normal and Yes other (RETROGANTHIA OF THE LOWER JAW) Eyes General: appearance normal, both eyes and all related structures Neck Neck: Yes normal visual inspection, Yes no lymphadenopathy, Yes trachea midline and Yes no JVD Thyroid: Thyroid normal Chest Chest palpation & inspection: normal inspection of the chest, normal palpation of entire chest wall and no tenderness Resp Effort & Inspection: normal respiratory effort and no cough Auscultation: clear to auscultation bilaterally, no crackles and no wheezes Cardio Palpation: normal PMI Rate: regular rate Rhythm: regular rhythm Heart sounds: no gallops and no murmurs Peripheral pulses: Peripheral pulses 2+ throughout GI Palpation (GI): Soft to palpation, nontender, No hepatosplenomegaly present and no masses Auscultation: normal bowel sounds Back/Spine/Pelvis Thoracic/Lumbar Spine: thoracic and lumbar spine normal to inspection Skin General skin exam: no rashes or lesions noted Neuro General: patient oriented x3 and no focal motor deficits Cranial nerves: Yes CN's II-XII intact bilaterally Extrem General: Yes normal to inspection, Yes no clubbing, cyanosis or edema and Yes no calf tenderness Psych Appearance: grossly normal and well kempt Speech and movement: Normal speech and movement present Results Reviewed Results Reviewed: Compliance report reviewed. He used 27/30 nights, 90%. Average use it per night 4 hours 43 minutes. Pressure used 13-14 cm. Residual AHI 2.0 Assessment & Plan Assessment & Plan (1) Obesity (BMI 30-39.9): Comment: He is only moderately obese and has lost 6 lb since last time. Code(s): E66.9 - Obesity, unspecified Plan: Counseled to keep on losing weight slowly, goal is BMI 25 (2) NATALIO (obstructive sleep apnea): Comment: THIS GENTLEMAN DOES HAVE OBSTRUCTIVE SLEEP APNEA WHICH IS PRIMARILY DUE TO RETROGANTHIA OF THE LOWER JAW, IT IS MUCH IMPROVED WITH THE USE OF CPAP. HE IS USING WITH GOOD COMPLIANCE AND SLEEPING MUCH BETTER. Code(s): G47.33 - Obstructive sleep apnea (adult) (pediatric) Plan: ADVISED TO CONTINUE USING THE CPAP REGULARLY AND TRY TO USE MORE THAN 5 HOURS PER NIGHT (3) Smoker: Comment: Smokes but has cut down to 4 cigarettes a a day . Code(s): F17.200 - Nicotine dependence, unspecified, uncomplicated Plan: AGAIN counseled To quit smoking completely . Coding Level of Care Code Est Pt Level 3 (86771) Diagnoses Obesity (BMI 30-39.9) E66.9 NATALIO (obstructive sleep apnea) G47.33 Smoker F17.200
== END 2024-02-04 15:49 | disposition home or self-care (01) ==
PROVIDERS: PCP Internal Medicine; Visit Provider Internal Medicine
DX: E66.9 Obesity, unspecified (principal); G47.33 Obstructive sleep apnea (adult) (pediatric); F17.200 Nicotine dependence, unspecified, uncomplicated
CPT/HCPCS: 99213

== ENCOUNTER → 2024-02-04 15:20 | Outpatient (BNVA) | payer OTHER, SELFPAY | PROVIDERS: PCP Internal Medicine; Visit Provider Internal Medicine | DX: G47.33 Obstructive sleep apnea (adult) (pediatric) (principal); E66.9 Obesity, unspecified; F17.210 Nicotine dependence, cigarettes, uncomplicated; Z68.28 Body mass index [BMI] 28.0-28.9, adult | CPT/HCPCS: 99212 ==

== ENCOUNTER 2024-05-27 16:06 | Outpatient (AMB) | payer OTHER, SELFPAY ==
[2024-05-27 16:34] VITALS: BP 120/84; BMI 28.0
--- NOTE | 2024-05-27 16:34 | A.OFFPC_ITS ---
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 Accompanied by: Self / Same As Patient Allergies phenytoin [From Dilantin] Adverse Reaction (Intermediate, Verified 05/27/24 16:49) inadequate response Medication List - Last Reconciled 05/27/24 by Sylvia Becerril MD lacosamide (Vimpat) 100 mg PO BID levetiracetam (Keppra) 1,000 mg PO BID 30 days sertraline 25 mg PO DAILY Tobacco use date assessed: 05/27/24 Dental Screening Dental Screen Date: 05/27/24 Did you have a dental visit in the last 12 months?: No Did you have a dental problem in the last 6 months where you did not have access to dental care?: No Was dental information given to patient?: Patient has dentist HPI HPI Comments History of Present Illness Details This is 43 year old male with seizures and moderate major depression that comes complaining of skin lesion in the back of the skull that is tender and will be refer to dermatology. Seizures have been stable with medications. Depression is follow by psychiatry and still present. He is a smoker and was advise to quit. [facility] Medical History (Updated 05/27/24 @ 16:57 by Sylvia Becerril MD) Smoker Somnolence, daytime Hospital discharge follow-up Overweight (BMI 25.0-29.9) RADHA (obstructive sleep apnea) Moderate major depression, single episode Obesity (BMI 30-39.9) Sleep apnea Seizures Surgical History History of major surgery Family History Father Alzheimer's dementia Brother Brain malignant neoplasm Mother CVA (cerebral vascular accident) Brain aneurysm Social History Housing: Apartment Alcohol intake: current Alcohol intake frequency: does not drink Alcohol type: beer Patient Tobacco Use Status: Current everyday Tobacco user Tobacco use type: Cigarette Cigarettes Per Day: 4 e-Cigarette/Vaping Use: Never Used Second Hand Smoke Exposure: No service: No Current occupational status: unemployed Cognitive needs: No Hearing needs: No Vision needs: No Questionnaire PHQ-9 Over the last 2 weeks, how often have you been bothered by any of the following problems? 1. Little interest or pleasure in doing things: several days 2. Feeling down, depressed, or hopeless: nearly every day 3. Trouble falling or staying asleep, or sleeping too much: nearly every day 4. Feeling tired or having little energy: nearly every day 5. Poor appetite or overeating: more than half the days 6. Feeling bad about yourself - or that you are a failure or have let yourself or your family down: several days 7. Trouble concentrating on things, such as reading the newspaper or watching television: nearly every day 8. Moving or speaking so slowly that other people could have noticed. Or the opposite - being so fidgety or restless that you have been moving around a lot more than usual: nearly every day 9. Thoughts that you would be better off or of hurting yourself in some way: several days Total score: 20 Depression Screening Interpretation: Positive (no suicidal thoughts) Depression Screening Follow-up: Existing condition, In treatment and Follow-up Visit Requested Depression Screening Done: Yes 87182 - PHQ-9 Billing: Yes Source: Developed by Drs. Gregg Felix, Nela Rodriguez, Eliezer Nelson and colleagues, with an educational yevgeniy from [employer]. Thrive Questionnaire Date Thrive assessed: 05/27/24 I am a: Patient What is your living situation today?: I have a steady place to live Within the past 12 months, did the food you bought not last and you didn't have the money to get more?: Never true Within the past 12 months, did you worry whether your food would run out before you got money to buy more?: Never true Do you have trouble paying for medicines?: No Do you have trouble getting transportation to medical appointments?: No Do you have trouble paying your heating and electricity bill?: No Do you have trouble taking care of your child, family member or friend?: No Do you have trouble with day-to-day activities such as bathing, preparing meals, shopping, managing finances, etc.?: No Are you currently unemployed and looking for a job?: No Are you interested in more education?: No Please select the resources that you would like help with: None Currently or been in a relationship where the following occur: No concerns reported THRIVE Score: 0 AUDIT C Alcohol Use Questionnaire (AUDIT-C) 1. How often do you have a drink containing alcohol?: Monthly or less 2. How many drinks containing alcohol do you have on a typical day when you are drinking?: 1 or 2 3. How often do you have six or more drinks on one occasion?: Never Total Score: 1 Score Reviewed/Action Taken: No TRACEY-7 AMB Questionnaire TRACEY-7 Date TRACEY - 7 assessed: 05/27/24 Feeling nervous, anxious, or on edge: 3 = Nearly every day Not being able to stop or control worryin = Several days Worrying too much about different things: 3 = Nearly every day Trouble relaxin = Nearly every day Being so restless that it is hard to sit still: 3 = Nearly every day Becoming easily annoyed or irritable: 2 = More than half the days Feeling afraid as if something awful might happen: 3 = Nearly every day Total TRACEY-7 score (0-4 normal; 5-9 mild; 10-14 moderate; 15-21 severe): 18 Source: Developed by Drs. Gregg Felix, Nela Rodriguez, Eliezer Nelson and colleagues, with an educational yevgeniy from [employer]. TRACEY-7 Assessment Billing TRACEY-7 Assessment Tool: TRACEY-7 Assessment [id number] Review of Systems Const All systems reviewed & are unremarkable except as noted in HPI and below Card Denies chest pain at rest, Denies chest pain with activity, Denies edema, Denies irregular heart rhythm, Denies claudication, Denies dyspnea, Denies dyspnea on exertion, Denies orthopnea, Denies paroxysmal nocturnal dyspnea and Denies slow heart rate Resp Denies cough, Denies dyspnea and Denies dyspnea on exertion GI Denies abdominal pain, Denies change in bowel habits, Denies excessive flatus, Denies nausea and Denies vomiting Denies urinary hesitancy, Denies urinary incontinence and Denies urinary urgency Musc Denies atrophy, Denies deformity and Denies limited range of motion Physical exam (Primary Care) Vital Signs: Last Vital Signs BP 120/84 05/27/24 16:34 BMI result Body Mass Index 28.0 BMI Assessment/Plan discussion: High BMI High, discussed plan: lifestyle, weight reduction, dietary and physical activity Tobacco/Smoking Status: Tobacco use Status Tobacco use date assessed 05/27/24 05/27/24 16:42 Patient Tobacco Use Status Current everyday Tobacco 05/27/24 16:42 Tobacco use type Cigarette 05/27/24 16:42 e-Cigarette/Vaping Use Never Used 05/27/24 16:42 PHQ-9: PHQ-9 Score PHQ-9: Total score 05/27/24 17:23 Depression Screening Interpretation: Positive (no suicidal thoughts) Depression Screening Follow-up: Existing condition, In treatment and Follow-up Visit Requested Thrive Assessment: Date of Thrive Assessment Date Thrive assessed 05/27/24 05/27/24 16:42 Currently or been in a relationship where the following occur: No concerns reported Resp Effort & Inspection: normal respiratory effort Auscultation: clear to auscultation bilaterally Cardio Jugular venous distension: no JVD Rate: regular rate Rhythm: regular rhythm Heart sounds: S1 normal heart sound present and S2 normal heart sound present Extrem General: Yes full ROM Assessment and Plan Assessment & Plan (1) Moderate major depression, single episode: Code(s): F32.1 - Major depressive disorder, single episode, moderate Plan: Continue SSRIs. (2) Seizures: Comment: Diagnosed at 17 years old by EEG in [place], [place] Remains controlled with medication , Keppra 1000 mg b.i.d. and lacosamide 100 mg b.i.d. Code(s): R56.9 - Unspecified convulsions Plan: Continue Keppra and Vimpat. Follow up with neurology. (3) Skin lesion: Code(s): L98.9 - Disorder of the skin and subcutaneous tissue, unspecified Plan: Refer to dermatology. Orders: Referrals Dermatology Referral L98.9 - Disorder of the skin and subcutaneous tissue, unspecified Coding Level of Care Code Est Pt Level 3 (85859) Complex EM visit Add On G2211 Diagnoses Moderate major depression, single episode F32.1 Seizures R56.9 Skin lesion L98.9 Additional Codes TRACEY-7 Assessment Billing - TRACEY-7 Assessment Tool: TRACEY-7 Assessment [id number] ([id number]) Time Spent (min) 19
== END 2024-05-27 16:57 | disposition home or self-care (01) ==
LOC: HO.HMGH 16:06
PROVIDERS: PCP Internal Medicine; Visit Provider Internal Medicine
DX: R56.9 Unspecified convulsions (principal); F32.1 Major depressive disorder, single episode, moderate; L98.9 Disorder of the skin and subcutaneous tissue, unspecified
CPT/HCPCS: 99213; G2211

== ENCOUNTER 2024-07-28 12:36 | Outpatient (AMB) | payer OTHER, SELFPAY ==
--- NOTE | 2024-07-28 12:45 | A.OFFVIS_ITS ---
Vital Signs 07/28/24 12:53 Height 5 ft 7 in Weight 183 lb BMI 28.7 BP 134/90 H Blood Pressure Location Rt brachial Position Sitting Pulse 67 Intake Visit Reasons: Lump/mass~ Posterior scalp Intake Note: Patient referred by pcp Dr. Bucky Becerril for lump/ mass on posterior scalp. Present for 1m. Patient c/o: tender to touch for the past 2wks. 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 He says it gets bigger and then smaller. At today's visit, he says that it is not swollen and actually feels normal. He has no such lesions elsewhere. Chart was reviewed and patient evaluated [facility] Medical History Smoker Somnolence, daytime Hospital discharge follow-up Overweight (BMI 25.0-29.9) RADHA (obstructive sleep apnea) Moderate major depression, single episode Obesity (BMI 30-39.9) Sleep apnea Seizures Surgical History History of major surgery Family History Father Alzheimer's dementia Brother Brain malignant neoplasm Mother CVA (cerebral vascular accident) Brain aneurysm Social History Housing: Apartment Alcohol intake: current Alcohol intake frequency: does not drink Alcohol type: beer Patient Tobacco Use Status: Current everyday Tobacco user Tobacco use type: Cigarette Cigarettes Per Day: 4 e-Cigarette/Vaping Use: Never Used Second Hand Smoke Exposure: No service: No Current occupational status: unemployed Cognitive needs: No Hearing needs: No Vision needs: No Physical Exam Vital Signs: Last Vital Signs Pulse 67 07/28/24 12:53 BP 134/90 H 07/28/24 12:53 BMI result Body Mass Index 28.7 HEENT Other: No obvious cervical periclavicular or axillary adenopathy bilaterally. Patient has left occiput which uses area of concern is essentially within normal limits. Equivalent to the contralateral opposite side. No obvious mass adenopathy or skin changes. Assessment & Plan Assessment & Plan (1) Swelling of scalp: Code(s): R22.0 - Localized swelling, mass and lump, head Category: Surgical Plan At present, nothing warrant surgical intervention. Patient has been instructed that should this become swollen or enlarged again he should call the office and we will see him immediately. Otherwise he will follow-up p.r.n.. All questions answered. Coding Level of Care Code New Pt Level 3 (97511) Diagnoses Swelling of scalp R22.0
[2024-07-28 12:53] VITALS: BP 134/90; PULSE 67; BMI 28.7
== END 2024-07-28 12:57 | disposition home or self-care (01) ==
PROVIDERS: PCP Internal Medicine; Referring Provider Internal Medicine; Visit Provider Surgery
DX: R22.0 Localized swelling, mass and lump, head (principal)
CPT/HCPCS: 99203

== ENCOUNTER → 2024-07-28 12:36 | Outpatient (BNVA) | payer OTHER, SELFPAY | PROVIDERS: PCP Internal Medicine; Referring Provider Internal Medicine; Visit Provider Surgery | DX: R22.0 Localized swelling, mass and lump, head (principal) | CPT/HCPCS: 99202 ==

== ENCOUNTER 2024-08-07 13:16 | Outpatient (AMB) | payer OTHER, SELFPAY ==
[2024-08-07 13:23] VITALS: BP 102/70; PULSE 66; O2SAT 99; BMI 29.1
--- NOTE | 2024-08-07 13:23 | A.OFFVIS_ITS ---
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 He uses CPAP regularly every night but on some of the nights the mask comes off during sleep, and he uses CPAP during the daytime to make it up. Anyway he is quite dependent on the CPAP use it he does not use he remains sleepy during the daytime. He is disabled because of his seizure disorder, which is well controlled with meds. Weight hurley there is no change. [facility] Medical History Smoker Somnolence, daytime Hospital discharge follow-up Overweight (BMI 25.0-29.9) RADHA (obstructive sleep apnea) Moderate major depression, single episode Obesity (BMI 30-39.9) Sleep apnea Seizures Surgical History History of major surgery Family History Father Alzheimer's dementia Brother Brain malignant neoplasm Mother CVA (cerebral vascular accident) Brain aneurysm Social History Housing: Apartment Alcohol intake: current Alcohol intake frequency: does not drink Alcohol type: beer Patient Tobacco Use Status: Current everyday Tobacco user Tobacco use type: Cigarette Cigarettes Per Day: 4 e-Cigarette/Vaping Use: Never Used Second Hand Smoke Exposure: No service: No Current occupational status: unemployed Cognitive needs: No Hearing needs: No Vision needs: No Review of Systems Const All systems reviewed & are unremarkable except as noted in HPI and below Eyes Reports no additional complaints ENT Reports no additional complaints Card Denies chest pain, Denies irregular heart rhythm and Denies leg edema Resp Reports no additional complaints GI Reports no additional complaints Reports no additional complaints Musc Reports no additional complaints Skin/Breast Reports system reviewed and no additional complaints, except as documented Neuro Reports other (Seizure disorder controlled) Psych Reports no additional complaints and Reports depression (Past history of major depression, not any more) Endo Reports no additional complaints Physical Exam Vital Signs: Last Vital Signs Pulse 66 08/07/24 13:23 BP 102/70 08/07/24 13:23 Pulse Ox 99 08/07/24 13:23 Oxygen Delivery Method Room Air 08/07/24 13:23 BMI result Body Mass Index 29.1 Const Other: Only slightly overweight, healthy looking General: comfortable, no acute distress, alert and awake Orientation/consciousness: patient oriented x3 HEENT Head: Yes normal to inspection General nose exam: No nasal polyps present and No nasal discharge present Face and sinus: Yes sinuses nontender Mouth: oropharynx abnormals (His tongue is placed back the oropharynx is narrow, Mallampati class 4.) Teeth and gingiva: other (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.) Throat: Yes posterior oropharynx normal and Yes other (RETROGANTHIA OF THE LOWER JAW) Eyes General: appearance normal, both eyes and all related structures Neck Neck: Yes normal visual inspection, Yes no lymphadenopathy, Yes trachea midline and Yes no JVD Thyroid: Thyroid normal Chest Chest palpation & inspection: normal inspection of the chest, normal palpation of entire chest wall and no tenderness Resp Effort & Inspection: normal respiratory effort and no cough Auscultation: clear to auscultation bilaterally, no crackles and no wheezes Cardio Palpation: normal PMI Rate: regular rate Rhythm: regular rhythm Heart sounds: no gallops and no murmurs Peripheral pulses: Peripheral pulses 2+ throughout GI Palpation (GI): Soft to palpation, nontender, No hepatosplenomegaly present and no masses Auscultation: normal bowel sounds Back/Spine/Pelvis Thoracic/Lumbar Spine: thoracic and lumbar spine normal to inspection Skin General skin exam: no rashes or lesions noted Neuro General: patient oriented x3 and no focal motor deficits Cranial nerves: Yes CN's II-XII intact bilaterally Extrem General: Yes normal to inspection, Yes no clubbing, cyanosis or edema and Yes no calf tenderness Psych Appearance: grossly normal and well kempt Speech and movement: Normal speech and movement present Assessment & Plan Assessment & Plan (1) RADHA (obstructive sleep apnea): Comment: THIS GENTLEMAN DOES HAVE OBSTRUCTIVE SLEEP APNEA WHICH IS PRIMARILY DUE TO RETROGANTHIA OF THE LOWER JAW, IT IS MUCH IMPROVED WITH THE USE OF CPAP. HE IS USING WITH GOOD COMPLIANCE AND SLEEPING MUCH BETTER. Code(s): G47.33 - Obstructive sleep apnea (adult) (pediatric) Category: Medical Plan: Advised to continue using CPAP every night. He needs to use at least for 6 hours every night. If he takes a nap during the daytime it is okay to put the CPAP on even during the daytime. (2) Overweight (BMI 25.0-29.9): Comment: He is only slightly overweight.. His sleep apnea is mainly due to retro ganthia of the lower jaw . Code(s): E66.3 - Overweight Category: Medical Plan: Advise that he should still maintain his weight, to keep BMI below 30. Coding Level of Care Code Est Pt Level 3 (88081) Diagnoses RADHA (obstructive sleep apnea) G47.33 Overweight (BMI 25.0-29.9) E66.3
== END 2024-08-07 13:35 | disposition home or self-care (01) ==
PROVIDERS: PCP Internal Medicine; Visit Provider Internal Medicine
DX: G47.33 Obstructive sleep apnea (adult) (pediatric) (principal); E66.3 Overweight
CPT/HCPCS: 99213

== ENCOUNTER → 2024-08-07 13:16 | Outpatient (BNVA) | payer OTHER, SELFPAY | PROVIDERS: PCP Internal Medicine; Visit Provider Internal Medicine | DX: G47.33 Obstructive sleep apnea (adult) (pediatric) (principal); E66.3 Overweight; Z68.29 Body mass index [BMI] 29.0-29.9, adult; Z99.89 Dependence on other enabling machines and devices | CPT/HCPCS: 99212 ==

== ENCOUNTER → 2025-02-04 14:18 | Outpatient (BNVA) | payer OTHER, SELFPAY | PROVIDERS: PCP Internal Medicine ==

== ENCOUNTER 2025-02-04 16:00 | Outpatient (RCR) | payer OTHER, SELFPAY ==
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
--- NOTE | 2025-03-03 08:33 | MHC.PT.DC ---
[facility] [place] Office [place] Office [place] Office [address] Rc Broder[place] [address] [phone] F: [phone] F: [phone] F: [phone] F: [phone] Physical Therapy Discharge Report Diagnosis: Pain in R leg Date of Surgery: NA Date of Evaluation: 12/31/24 Date of Discharge: 03/03/25 Treatments to Date: 5 Cancellations to Date: 4 No Shows to Date: 2 Discharge Status: Independent with HEP Visit Non-compliance Discharge Summary: Luis attended 5 PT visits, canceled 4 and no showed 2. He was independent with all HEP during his last visit. He is therefore being d/c from PT. Electronically signed by: Rae Maldonado, PT DPT Please sign and return to therapist. Thank you for your referral.
== END 2025-03-03 08:34 | disposition home or self-care (01) ==
LOC: HO.PT 16:00
PROVIDERS: PCP Internal Medicine; Visit Provider Internal Medicine
DX: M79.604 Pain in right leg (principal)
CPT/HCPCS: 97110; 97162; 97530

== ENCOUNTER 2025-03-02 16:33 | Outpatient (AMB) | payer OTHER, SELFPAY ==
[2025-03-02 16:47] VITALS: BP 118/82; BMI 29.3
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
== END 2025-03-02 17:38 | disposition home or self-care (01) ==
LOC: HO.HMCH 16:34
PROVIDERS: PCP Internal Medicine; Visit Provider Internal Medicine
DX: Z00.00 Encounter for general adult medical examination without abnormal findings (principal); F32.1 Major depressive disorder, single episode, moderate; R56.9 Unspecified convulsions

== ENCOUNTER → 2025-03-02 16:33 | Outpatient (BNVA) | payer OTHER, SELFPAY | PROVIDERS: PCP Internal Medicine; Visit Provider Internal Medicine | DX: Z00.00 Encounter for general adult medical examination without abnormal findings (principal); F32.1 Major depressive disorder, single episode, moderate; R56.9 Unspecified convulsions; Z79.899 Other long term (current) drug therapy | CPT/HCPCS: 96127; 99396 ==

== ENCOUNTER → 2025-04-07 14:13 | Outpatient (BNVA) | payer OTHER, SELFPAY | PROVIDERS: PCP Internal Medicine ==

== ENCOUNTER 2025-06-30 13:15 | Outpatient (RCR) | payer OTHER, SELFPAY | END 2025-06-30 23:59 | disposition home or self-care (01) | LOC: HO.PHPA 13:15 | PROVIDERS: Visit Provider Psychiatry & Neurology Psychiatry | DX: F43.10 Post-traumatic stress disorder, unspecified (principal); F41.1 Generalized anxiety disorder ==

== ENCOUNTER 2025-09-14 17:06 | Outpatient (AMB) | payer OTHER, SELFPAY ==
[2025-09-14 17:14] VITALS: BP 158/72; PULSE 80; O2SAT 98; BMI 28.8
--- NOTE | 2025-09-14 17:14 | A.OFFPC_ITS ---
Vital Signs 09/14/25 17:14 Height 5 ft 7 in Weight 184 lb BMI 28.8 BP 158/72 H Blood Pressure Location Lt brachial Position Sitting Pulse 80 Pulse Source Pulse Oximeter Pulse Oximetry (%) 98 Oxygen Delivery Method Room Air Intake Visit Reasons: depression, seizures Manager Of Radiology Required: No Accompanied by: Self / Same As Patient Allergies phenytoin (From Dilantin) Adverse Reaction (Intermediate, Verified 09/14/25 17:27) inadequate response Medication List - Last Reconciled 09/14/25 by Sylvia Becerril MD lacosamide (Vimpat) 100 mg PO BID levetiracetam (Keppra) 1,000 mg PO BID 30 days sertraline 25 mg PO DAILY Tobacco use date assessed: 03/02/25 Dental Screening Dental Screen Date: 03/02/25 HPI HPI Comments History of Present Illness Details The patient is a 45-year-old male presenting for follow-up management of his chronic conditions. The patient has a history of a seizure disorder and is followed by neurology. He reports experiencing visual auras, described as seeing spots (manchitas), partic ularly upon waking with a headache. Post-ictally, he feels slow and not like his usual self, an observation also made by his cousin. He takes a medication referred to as Bimper for his seizures but recently had difficulty obtaining it from his usual [facility], finding it instead at a pharmacy in [place]. The patient also has a history of sleep apnea, for which he uses a CPAP machine. He feels this is beneficial as it continues to provide oxygen, making him feel more relaxed, especially if a seizure occurs. Regarding his blood pressure, it was noted to be elevated during this visit, which is a change from a prior visit when it was normal. [facility] Medical History Smoker Somnolence, daytime Hospital discharge follow-up Overweight (BMI 25.0-29.9) RADHA (obstructive sleep apnea) Moderate major depression, single episode Obesity (BMI 30-39.9) Sleep apnea Seizures Surgical History History of tooth extraction History of major surgery Family History Father Alzheimer's dementia Brother Brain malignant neoplasm Mother CVA (cerebral vascular accident) Brain aneurysm Social History Housing: Apartment Alcohol intake: current Alcohol intake frequency: holidays/special occasions only Alcohol type: beer Patient Tobacco Use Status: Current everyday Tobacco user Tobacco use type: Cigarette Cigarettes Per Day: 4 e-Cigarette/Vaping Use: Never Used Second Hand Smoke Exposure: No service: No Current occupational status: unemployed Cognitive needs: No Hearing needs: No Vision needs: No Questionnaire Thrive Questionnaire Date Thrive assessed: 03/02/25 I am a: Patient What is your living situation today?: I choose not to answer this question Within the past 12 months, did the food you bought not last and you didn't have the money to get more?: I choose not to answer this question Within the past 12 months, did you worry whether your food would run out before you got money to buy more?: I choose not to answer this question Do you have trouble paying for medicines?: No Do you have trouble getting transportation to medical appointments?: I choose not to answer this question Do you have trouble paying your heating and electricity bill?: I choose not to answer this question Do you have trouble taking care of your child, family member or friend?: I choose not to answer this question Do you have trouble with day-to-day activities such as bathing, preparing meals, shopping, managing finances, etc.?: I choose not to answer this question Are you currently unemployed and looking for a job?: I choose not to answer this question Are you interested in more education?: I choose not to answer this question Please select the resources that you would like help with: None Currently or been in a relationship where the following occur: I choose not to answer THRIVE Score: 0 TRACEY-7 AMB Questionnaire TRACEY-7 Date TRACEY - 7 assessed: 03/02/25 Source: Developed by Drs. Gregg Felix, Nela Rodriguez, Eliezer Nelson and colleagues, with an educational yevgeniy from [employer] Review of Systems Const All systems reviewed & are unremarkable except as noted in HPI and below Card Denies chest pain at rest, Denies chest pain with activity, Denies edema, Denies irregular heart rhythm, Denies claudication, Denies dyspnea, Denies dyspnea on exertion, Denies orthopnea, Denies paroxysmal nocturnal dyspnea and Denies slow heart rate Resp Denies cough, Denies dyspnea and Denies dyspnea on exertion GI Denies abdominal pain, Denies change in bowel habits, Denies excessive flatus, Denies nausea and Denies vomiting Physical exam (Primary Care) Vital Signs: Last Vital Signs Pulse 80 09/14/25 17:14 BP 158/72 H 09/14/25 17:14 Pulse Ox 98 09/14/25 17:14 Oxygen Delivery Method Room Air 09/14/25 17:14 BMI result Body Mass Index 28.8 Tobacco/Smoking Status: Tobacco use Status Tobacco use date assessed 03/02/25 09/14/25 17:17 Patient Tobacco Use Status Current everyday Tobacco 09/14/25 17:17 Tobacco use type Cigarette 09/14/25 17:17 e-Cigarette/Vaping Use Never Used 09/14/25 17:17 Thrive Assessment: Date of Thrive Assessment Date Thrive assessed 03/02/25 09/14/25 17:17 Currently or been in a relationship where the following occur: I choose not to answer Resp Effort & Inspection: normal respiratory effort Auscultation: clear to auscultation bilaterally Cardio Jugular venous distension: no JVD Rate: regular rate Rhythm: regular rhythm Heart sounds: S1 normal heart sound present and S2 normal heart sound present Extrem General: Yes full ROM Coding Level of Care Code Est Pt Level 3 (08932) Diagnoses Seizures R56.9 Moderate major depression, single episode F32.1 RADHA (obstructive sleep apnea) G47.33 Time Spent (min) 18 Assessment & Plan Assessment & Plan (1) Seizures: Comment: Diagnosed at 17 years old by EEG in [place], [place] Remains controlled with medication , Keppra 1000 mg b.i.d. and lacosamide 100 mg b.i.d. Code(s): R56.9 - Unspecified convulsions Category: Medical (2) Moderate major depression, single episode: Code(s): F32.1 - Major depressive disorder, single episode, moderate Category: Medical (3) RADHA (obstructive sleep apnea): Comment: THIS GENTLEMAN DOES HAVE OBSTRUCTIVE SLEEP APNEA WHICH IS PRIMARILY DUE TO RETROGANTHIA OF THE LOWER JAW, IT IS MUCH IMPROVED WITH THE USE OF CPAP. HE IS USING WITH GOOD COMPLIANCE AND SLEEPING MUCH BETTER. Code(s): G47.33 - Obstructive sleep apnea (adult) (pediatric) Category: Medical Plan Plan 1. Seizure Disorder The patient continues to have seizures with post-ictal slowing and is followed by neurology. He was advised to maintain control of his seizures and continue care with his neurologist. 2. Elevated blood pressure without diagnosis of hypertension The patient's blood pressure was noted to be elevated during the visit, which is a change from his previous visit. A follow-up appointment in 3 weeks was scheduled to recheck his blood pressure and see if it has improved. 3. Obstructive sleep apnea on CPAP Continue CPAP machine. Orders: Orders Complete Blood Count Auto Diff Today D64.9 - Anemia, unspecified Vitamin D 25-OH Total Today E55.9 - Vitamin D deficiency, unspecified Comprehensive [place]. Panel Fast Today R40.0 - Somnolence Lipid Panel Today E78.5 - Hyperlipidemia, unspecified Vitamin B12 and Folate Today E53.8 - Deficiency of other specified B group vitamins
== END 2025-09-14 17:58 | disposition home or self-care (01) ==
LOC: HO.HMCH 17:07
PROVIDERS: PCP Internal Medicine; Visit Provider Internal Medicine
DX: R56.9 Unspecified convulsions (principal); F32.1 Major depressive disorder, single episode, moderate; G47.33 Obstructive sleep apnea (adult) (pediatric)

== ENCOUNTER → 2025-09-14 17:06 | Outpatient (BNVA) | payer OTHER, SELFPAY | PROVIDERS: PCP Internal Medicine; Visit Provider Internal Medicine | DX: F32.1 Major depressive disorder, single episode, moderate (principal); R56.9 Unspecified convulsions; G47.33 Obstructive sleep apnea (adult) (pediatric); E55.9 Vitamin D deficiency, unspecified; R40.0 Somnolence; E78.5 Hyperlipidemia, unspecified; E53.8 Deficiency of other specified B group vitamins; Z99.89 Dependence on other enabling machines and devices | CPT/HCPCS: 99212 ==